=== PATIENT | male | born 1955 | race Caucasian/White ===

== ENCOUNTER 2021-08-31 15:56 | Outpatient (CLI) | payer BC ==
[2021-08-31 16:42] LABS: #Eosinphils 0.2 10x3/uL (0.0-0.5); #Monocytes 0.4 10x3/uL (0.0-1.1); #Neutrophils 4.5 10x3/uL (1.5-8.4); %Basophils 0.4 % (0.0-2.0); %Eosinophils 3.1 % (0.0-6.0); %Lymphocytes 27.5 % (18.0-47.0); %Neutrophils 62.4 % (40.0-75.0); Hemoglobin 16.5 g/dL (13.5-17.5); Mean Corpuscular HGB CONC 33.4 g/dL (32.0-36.0); Mean Corpuscular Hemoglobin 29.5 pg (27.0-33.0); Mean Corpuscular Volume 88.4 fl (81.2-95.1); Mean Platelet Volume 10.9 fl (7.4-10.4); Platelet Count 180 10x3/uL (150-450); RBC Distribution Width 13.5 % (11.5-14.5); Red Blood Cell (RBC) Count 5.59 10x6/uL (4.32-5.72); White Blood Cell (WBC) Count 7.2 10x3/uL (3.5-10.5)
[2021-08-31 17:01] LABS: Anion Gap 18 mmol/L (10-20); BUN (Urea Nitrogen) 9 mg/dL (8.4-25.7); Calc. Creatinine Clearance 0 mL/min (70-130); Calcium 9.6 mg/dL (7.8-10.44); Carbon Dioxide 22 mmol/L (23-31); Chloride 100 mmol/L (98-107); Glucose 126 mg/dL (80-115); Sodium 136 mmol/L (136-145)
== END 2021-08-31 15:57 | disposition home or self-care (01) ==
LOC: LABBT 15:56
PROVIDERS: ATTEND Surgery
DX: Z01.818 Encounter for other preprocedural examination (principal); K43.9 Ventral hernia without obstruction or gangrene; Z20.822 Contact with and (suspected) exposure to COVID-19
CPT/HCPCS: 80048; 85025; 93005; 93010; U0003; U0005

== ENCOUNTER 2021-09-05 11:28 | Day surgery (SDC) | payer BC ==
[2021-09-03 11:04] VITALS: BMI 29.6
[2021-09-05] MEDS ORDERED: hydrALAZINE 20 MG/ML VIAL ONE (13:30)
[2021-09-05] MEDS ORDERED: Bupivacaine 0.25% HCL 30 ML VIAL ONE (15:24)
[2021-09-05] MEDS ORDERED: Lidocaine 1% w/Epinephrine 1:100K 20 ML VIAL ONE (15:24)
[2021-09-05] MEDS ORDERED: SUGAMMADEX SODIUM 200 MG/2 ML VIAL ONE (15:27)
[2021-09-05] MEDS ORDERED: fentaNYL Citrate/PF 100 MCG/2 ML SYRINGE ONE (15:27)
[2021-09-05] MEDS ORDERED: HYDROmorphone 0.5 MG/0.5 ML SYRINGE ONE (15:27)
[2021-09-05] MEDS ORDERED: Sodium Chloride 0.9% 100 ML ONE (15:30)
[2021-09-05] MEDS ORDERED: CEFAZOLIN 2 GM VIAL ONE (15:30)
[2021-09-05] MEDS ORDERED: Rocuronium Bromide 10 MG/ML (10ML VIAL) ONE (15:35)
[2021-09-05] MEDS ORDERED: PROPOFOL 200 MG/20 ML VIAL ONE (15:35)
[2021-09-05] MEDS ORDERED: Ketorolac Tromethamine 30 MG/ML VIAL ONE (15:35)
[2021-09-05] MEDS ORDERED: Glycopyrrolate 0.2 MG/ML 5 ML SYRINGE ONE (15:35)
[2021-09-05] MEDS ORDERED: Lidocaine 1% PF 5 ML VIAL ONE (15:35)
[2021-09-05] MEDS ORDERED: Succinylcholine 200 MG/10 ml SYRINGE FS ONE (15:35)
[2021-09-05] MEDS ORDERED: Ondansetron PF 4 MG/2 ML Vial ONE (15:35)
[2021-09-05] MEDS ORDERED: Labetalol HCl 100 MG/20 ML VIAL ONE (15:35)
[2021-09-05] MEDS ORDERED: Dexamethasone 20 MG/5 ML VIAL ONE (15:35)
[2021-09-05] MEDS ORDERED: Fentanyl 100 MCG/2 ML VIAL ONE (17:01)
== END 2021-09-05 18:45 | disposition home or self-care (01) ==
LOC: SDC 11:28
PROVIDERS: ATTEND Surgery
PROC: 8E0W4CZ Robotic Assisted Procedure of Trunk Region, Percutaneous Endoscopic Approach (ICD-10-PCS; principal; 2021-09-05)
PROC: 0WUF4JZ Supplement Abdominal Wall with Synthetic Substitute, Percutaneous Endoscopic Approach (ICD-10-PCS; principal; 2021-09-05)
DX: K43.9 Ventral hernia without obstruction or gangrene (principal); E78.5 Hyperlipidemia, unspecified; E11.9 Type 2 diabetes mellitus without complications; F17.210 Nicotine dependence, cigarettes, uncomplicated; Z79.84 Long term (current) use of oral hypoglycemic drugs; Z79.899 Other long term (current) drug therapy; Z88.2 Allergy status to sulfonamides
CPT/HCPCS: C1781; J0360; J0690; J1100; J1170; J1885; J2405; J2704; J3010; J3490; S0020

== ENCOUNTER 2021-10-19 09:29 | Outpatient (CLI) | payer BC | END 2021-10-19 09:30 | disposition home or self-care (01) | LOC: BICRAD 09:29 | PROVIDERS: ATTEND Family Medicine | DX: R06.00 Dyspnea, unspecified (principal) | CPT/HCPCS: 71046 ==

== ENCOUNTER 2021-11-23 23:31 | Inpatient (IN) | payer OTHER, BC ==
[2021-11-24 01:49] LABS: PTT 26.8 sec (22.9-36.1); Prothrombin Time 13.1 sec (12.0-14.7)
[2021-11-24] MEDS ORDERED: methylPREDNISolone Sod Succ/PF 125 MG/2 ML VIAL ONE (01:49)
[2021-11-24 01:50] LABS: Hemoglobin 16.1 g/dL (14.0-18.0); Mean Corpuscular HGB CONC 33.6 g/dL (32.0-36.0); Mean Corpuscular Hemoglobin 29.5 pg (27.0-31.0); RBC Distribution Width 15.4 % (11.5-14.5); Red Blood Cell (RBC) Count 5.45 mill/uL (4.70-6.10); White Blood Cell (WBC) Count 17.2 thou/uL (4.8-10.8)
[2021-11-24 01:54] LABS: Lactic Acid 1.7 mmol/L (0.5-2.2)
[2021-11-24 01:58] LABS: ALT (SGPT) 358 U/L (8-55); AST (SGOT) 216 U/L (5-34); Albumin 3.1 g/dL (3.4-4.8); Alkaline Phosphatase 481 U/L (40-110); Anion Gap 15 mmol/L (10-20); BUN (Urea Nitrogen) 17 mg/dL (8.4-25.7); Bilirubin, Direct 9.9 mg/dL (0.1-0.3); Bilirubin, Total 13.6 mg/dL (0.2-1.2); Calc. Creatinine Clearance 0 mL/min (70-130); Calcium 8.8 mg/dL (7.8-10.44); Carbon Dioxide 29 mmol/L (23-31); Chloride 92 mmol/L (98-107); Estimated GFR 100; Glucose 173 mg/dL (80-115); Lipase 42 U/L (8-78); Magnesium 2.1 mg/dL (1.6-2.6); Potassium 3.4 mmol/L (3.5-5.1); Protein, Total 6.1 g/dL (5.8-8.1); Sodium 133 mmol/L (136-145)
[2021-11-24 02:03] LABS: CKMB 4.3 ng/mL (0-6.6); Troponin I 0.013 ng/mL (< 0.028)
[2021-11-24 02:11] LABS: Lymphocytes 7 % (21-51); MDiff Complete? YES; Mean Platelet Volume 10.7 fL (7.4-10.4); Monocytes 1 % (0-10); Neutrophil 92 % (42-75); Platelet Count 104 thou/uL (130-400); Platelet Morphology Comment Appears Decreased; Reflex for Review?? YES; Target Cells MARKED = >16 cells (100X) (0-1/hpf)
[2021-11-24] MEDS ORDERED: Vancomycin 1 GM/200 ML BAG ONE (03:58)
[2021-11-24 05:42] LABS: Bacteria/HPF None Seen HPF (None Seen); Bilirubin 2+ (Negative); Blood, Urine Negative (Negative); Clarity Clear (Clear); Glucose, Urine (Dipstick) 70 mg/dL (Negative); Ketone, Urine Negative (Negative); Leukocyte Negative Leu/uL (Negative); Nitrite Negative (Negative); Protein, Urine (Dipstick) Negative (Neg-Trace); RBC/HPF 0-3 HPF (0-3); Squamous Epithelial None Seen HPF (0-3); Urobilinogen Normal mg/dL (Less than 2); WBC/HPF 0-3 HPF (0-3); pH, Urine 7.5 (5.0-9.0)
[2021-11-24] MEDS ORDERED: Ondansetron PF 4 MG/2 ML Vial IVP PRN (05:45)
[2021-11-24] MEDS ORDERED: Ondansetron ODT 4 MG TAB SL PRN (05:45)
[2021-11-24] MEDS ORDERED: Acetaminophen 325 MG TAB PO PRN (05:45)
[2021-11-24] MEDS ORDERED: metroNIDAZOLE 500 MG/100 ML BAG ONE (06:31)
[2021-11-24] MEDS ORDERED: Senokot S 8.6-50 MG TAB PO PRN (08:35)
[2021-11-24] MEDS ORDERED: Albuterol Sulfate 2.5 mg/3 ml Neb NEB PRN (08:47)
[2021-11-24 09:49] LABS: SARS-CoV-2 NAA Rapid Test Not Detected (NotDetected)
[2021-11-24] MEDS ORDERED: Dextrose 50% Abboject 50 ML SYRINGE SLOW IVP PRN (09:50)
[2021-11-24] MEDS ORDERED: Dextrose 5% in Water 1,000 ML IV PRN (09:50)
[2021-11-24] MEDS: Pantoprazole 40 MG VIAL IVP SCH ×2 (09:58→21:02)
[2021-11-24] MEDS ORDERED: guaiFENesin 200 MG TAB PO PRN (10:09)
[2021-11-24] MEDS: Sodium Chloride 0.9% 1,000 ML IV SCH ×4 (11:11→21:02)
[2021-11-24] MEDS: Potassium Chloride 20 MEQ in Premix Bag 1 BAG IVPB SCH ×3 (12:47→15:00)
[2021-11-24] MEDS: Nicotine 14 MG PATCH TD SCH (13:01)
[2021-11-24] MEDS ORDERED: metroNIDAZOLE 500 MG in Premix Bag 1 BAG IVPB SCH (14:00)
[2021-11-24] MEDS ORDERED: Iopamidol 370 76% 100 ML VIAL ONE (15:21)
[2021-11-24] MEDS ORDERED: Magnevist 469MG/ML 20 ML VIAL ONE (15:38)
[2021-11-25] MEDS: Sodium Chloride 0.9% 1,000 ML IV SCH (01:25)
[2021-11-25] MEDS: metroNIDAZOLE 500 MG in Premix Bag 1 BAG IVPB SCH ×2 (01:25→12:09)
[2021-11-25 07:20] LABS: ALT (SGPT) 279 U/L (8-55); AST (SGOT) 145 U/L (5-34); Acetaminophen Less than 10.0 mcg/mL (10.0-30.0); Albumin 2.7 g/dL (3.4-4.8); Alkaline Phosphatase 430 U/L (40-110); Anion Gap 14 mmol/L (10-20); BUN (Urea Nitrogen) 20 mg/dL (8.4-25.7); Bilirubin, Total 15.1 mg/dL (0.2-1.2); Calc. Creatinine Clearance 134 mL/min (70-130); Calcium 8.4 mg/dL (7.8-10.44); Carbon Dioxide 29 mmol/L (23-31); Chloride 95 mmol/L (98-107); Estimated GFR 104; Globulin 2.6 g/dL (2.4-3.5); Glucose 139 mg/dL (80-115); Iron 202 ug/dL (65-175); Iron Binding Capacity, Total 196 mcg/dL (261-462); Potassium 3.1 mmol/L (3.5-5.1); Protein, Total 5.3 g/dL (5.8-8.1); Sodium 135 mmol/L (136-145)
[2021-11-25 07:35] LABS: CEA, Serum 9.87 ng/mL (< or = 5.0); Ferritin 941.73 ng/mL (22-322)
[2021-11-25 07:43] LABS: #Lymphocytes 1.6 thou/uL (1.20-3.40); #Neutrophils 15.2 thou/uL (1.40-6.50); %Eosinophils 0.2 % (0.0-10.0); %Lymphocytes 8.9 % (21.0-51.0); %Monocytes 5.7 % (0.0-10.0); %Neutrophils 85.2 % (42.0-75.0); Hemoglobin 16.8 g/dL (14.0-18.0); Mean Corpuscular HGB CONC 34.1 g/dL (32.0-36.0); Mean Corpuscular Hemoglobin 30.4 pg (27.0-31.0); Mean Corpuscular Volume 89.2 fL (78.0-98.0); Mean Platelet Volume 10.7 fL (7.4-10.4); Platelet Count 110 thou/uL (130-400); RBC Distribution Width 15.9 % (11.5-14.5); Red Blood Cell (RBC) Count 5.51 mill/uL (4.70-6.10); White Blood Cell (WBC) Count 17.9 thou/uL (4.8-10.8)
[2021-11-25 07:44] LABS: Band 14 % (5-11); Lymphocytes 3 % (21-51); MDiff Complete? YES; Metamyelocyte 1 % (0-0); Monocytes 3 % (0-10); Myelocyte 1 % (0-0); Neutrophil 75 % (42-75); Platelet Morphology Comment Appears Decreased; Reactive Lymphocytes 3 % (0-10); Target Cells MARKED = >16 cells (100X) (0-1/hpf)
[2021-11-25 07:49] LABS: HBCM Index 0.04 S/CO (0-0.79); HBSAg Index 0.21 S/CO (0-0.99); Hep A IgM AB Non-Reactive (NonReactive); Hep B Surf Ag Non-Reactive S/CO (NonReactive); Hep C IgG Ab Non-Reactive (NonReactive); Hepatitis B Core IgM Abs Non-Reactive (NonReactive)
[2021-11-25] MEDS ORDERED: cefTRIAXone\\ROCEPHIN 1 GM in Sodium Chloride 0.9% 100 ML IVPB SCH (08:00)
[2021-11-25] MEDS ORDERED: Dexamethasone 10 MG in Sodium Chloride 0.9% 50 ML IVPB SCH (08:00)
[2021-11-25 08:17] LABS: Actual Bicarbonate (HCO3a) 30.9 mEq/L (22-28); Base Excess (BEa) 7.2 mEq/L (-2.0 to +3.0); CO2 Tension 40.2 mmHg (35.0-45.0); Calcium, Ionized (arterial) 1.12 mmol/L (1.12-1.30); Potassium - ABG Lab 3.19 mmol/L (3.70-5.30)
[2021-11-25 08:18] LABS: O2 Tension (PaO2), arterial 59.8 mmHg (> 80.0); Puncture Site RRA
[2021-11-25 08:45] LABS: Magnesium 2.1 mg/dL (1.6-2.6); Phosphorus 3.9 mg/dL (2.3-4.7)
[2021-11-25] MEDS ORDERED: Electrolyte Replacement Protocol 1 EACH FS SCH (08:45)
[2021-11-25] MEDS ORDERED: Doxycycline 100 MG in Sodium Chloride 0.9% 100 ML IVPB SCH (09:00)
[2021-11-25 09:05] LABS: HIV (1/2) Antibody/Antigen Non-Reactive (NonReactive); HIV 1/2 INDEX 0.19 S/CO (<1.00)
[2021-11-25] MEDS: Potassium Chloride 20 MEQ TAB PO SCH ×2 (09:18→14:07)
[2021-11-25] MEDS: Pantoprazole 40 MG VIAL IVP SCH ×2 (09:18→20:09)
[2021-11-25] MEDS: Dexamethasone 10 MG/ML VIAL SLOW IVP SCH (09:18)
[2021-11-25] MEDS: Fenofibrate Nanocrystallized 145 MG TAB PO SCH (09:18)
[2021-11-25] MEDS: Nicotine 14 MG PATCH TD SCH (09:20)
[2021-11-25] MEDS: cefTRIAXone\\ROCEPHIN 2 GM in Sodium Chloride 0.9% 100 ML IVPB SCH (14:07)
[2021-11-25 14:59] LABS: Legionella Urinary Ag Negative (Negative); Strep pneumo Urine Ag NEGATIVE (NEGATIVE)
[2021-11-25] MEDS: HumaLOG 300 UNITS/3 ML VIAL SC PRN ×2 (18:24→22:30)
[2021-11-25 19:21] LABS: Potassium 3.6 mmol/L (3.5-5.1)
[2021-11-25] MEDS ORDERED: Melatonin 3 MG TAB PO SCH (20:45)
[2021-11-26 07:29] LABS: Hemoglobin 15.4 g/dL (14.0-18.0); Mean Corpuscular HGB CONC 32.6 g/dL (32.0-36.0); Mean Corpuscular Volume 89.1 fL (78.0-98.0); Mean Platelet Volume 10.8 fL (7.4-10.4); Platelet Count 108 thou/uL (130-400); RBC Distribution Width 16.1 % (11.5-14.5); White Blood Cell (WBC) Count 19.2 thou/uL (4.8-10.8)
[2021-11-26 07:39] LABS: ALT (SGPT) 289 U/L (8-55); AST (SGOT) 186 U/L (5-34); Albumin 2.7 g/dL (3.4-4.8); Alkaline Phosphatase 412 U/L (40-110); Anion Gap 15 mmol/L (10-20); BUN (Urea Nitrogen) 19 mg/dL (8.4-25.7); Bilirubin, Total 15.1 mg/dL (0.2-1.2); Calc. Creatinine Clearance 130 mL/min (70-130); Calcium 8.4 mg/dL (7.8-10.44); Carbon Dioxide 28 mmol/L (23-31); Chloride 96 mmol/L (98-107); Estimated GFR 103; Globulin 2.7 g/dL (2.4-3.5); Glucose 130 mg/dL (80-115); Magnesium 2.2 mg/dL (1.6-2.6); Potassium 3.6 mmol/L (3.5-5.1); Protein, Total 5.4 g/dL (5.8-8.1); Sodium 135 mmol/L (136-145)
[2021-11-26 07:45] LABS: Phosphorus 3.1 mg/dL (2.3-4.7)
[2021-11-26 08:31] LABS: #Monocytes 1.3 thou/uL (0.11-0.59); %Eosinophils 0.2 % (0.0-10.0); %Lymphocytes 7.9 % (21.0-51.0); %Monocytes 6.8 % (0.0-10.0); Band 5 % (5-11); Lymphocytes 8 % (21-51); MDiff Complete? YES; Monocytes 6 % (0-10); Neutrophil 80 % (42-75); Platelet Morphology Comment Appears Decreased; Polychromasia SLIGHT = 2-3 cells (100X) (0-2/hpf); Reactive Lymphocytes 1 % (0-10); Target Cells MARKED = >16 cells (100X) (0-1/hpf)
[2021-11-26] MEDS: Dexamethasone 10 MG/ML VIAL SLOW IVP SCH (09:41)
[2021-11-26] MEDS: Fenofibrate Nanocrystallized 145 MG TAB PO SCH (09:41)
[2021-11-26] MEDS: Pantoprazole 40 MG VIAL IVP SCH ×2 (09:42→21:30)
[2021-11-26] MEDS: Nicotine 14 MG PATCH TD SCH (09:42)
[2021-11-26] MEDS: cefTRIAXone\\ROCEPHIN 2 GM in Sodium Chloride 0.9% 100 ML IVPB SCH (14:02)
[2021-11-26] MEDS ORDERED: GoLYTELY 4,000 ml Bottle PO SCH (17:00)
[2021-11-27 06:30] LABS: ALT (SGPT) 272 U/L (8-55); AST (SGOT) 149 U/L (5-34); Albumin 2.8 g/dL (3.4-4.8); Alkaline Phosphatase 407 U/L (40-110); Anion Gap 13 mmol/L (10-20); BUN (Urea Nitrogen) 20 mg/dL (8.4-25.7); Bilirubin, Total 16.7 mg/dL (0.2-1.2); Calc. Creatinine Clearance 136 mL/min (70-130); Calcium 8.5 mg/dL (7.8-10.44); Carbon Dioxide 31 mmol/L (23-31); Chloride 94 mmol/L (98-107); Estimated GFR 104; Globulin 2.7 g/dL (2.4-3.5); Glucose 148 mg/dL (80-115); Potassium 3.3 mmol/L (3.5-5.1); Protein, Total 5.5 g/dL (5.8-8.1); Sodium 135 mmol/L (136-145)
[2021-11-27 06:58] LABS: Band 7 % (5-11); Hemoglobin 15.8 g/dL (14.0-18.0); Lymphocytes 7 % (21-51); MDiff Complete? YES; Mean Corpuscular HGB CONC 33.7 g/dL (32.0-36.0); Mean Corpuscular Volume 89.1 fL (78.0-98.0); Mean Platelet Volume 10.2 fL (7.4-10.4); Monocytes 3 % (0-10); Neutrophil 83 % (42-75); Platelet Count 114 thou/uL (130-400); RBC Distribution Width 16.3 % (11.5-14.5); Red Blood Cell (RBC) Count 5.27 mill/uL (4.70-6.10); Target Cells MODERATE= 6-15 cells (100X) (0-1/hpf); White Blood Cell (WBC) Count 20.1 thou/uL (4.8-10.8)
[2021-11-27] MEDS: Fenofibrate Nanocrystallized 145 MG TAB PO SCH (09:18)
[2021-11-27] MEDS: Pantoprazole 40 MG VIAL IVP SCH ×2 (09:18→20:30)
[2021-11-27] MEDS: Dexamethasone 10 MG/ML VIAL SLOW IVP SCH (09:18)
[2021-11-27] MEDS: Nicotine 14 MG PATCH TD SCH (09:18)
[2021-11-27] MEDS: Potassium Chloride 20 MEQ in Premix Bag 1 BAG IVPB SCH ×2 (09:18→14:12)
[2021-11-27] MEDS ORDERED: Electrolyte Replacement Protocol 1 EACH FS SCH (09:45)
[2021-11-27] MEDS ORDERED: PROPOFOL 200 MG/20 ML VIAL ONE (11:38)
[2021-11-27] MEDS ORDERED: Lidocaine 1% MPF 2 ML VIAL ONE (11:38)
[2021-11-27] MEDS: cefTRIAXone\\ROCEPHIN 2 GM in Sodium Chloride 0.9% 100 ML IVPB SCH (14:12)
[2021-11-27] MEDS: HumaLOG 300 UNITS/3 ML VIAL SC PRN (16:49)
[2021-11-28] MEDS: HumaLOG 300 UNITS/3 ML VIAL SC PRN ×3 (06:21→17:40)
[2021-11-28 07:09] LABS: PTT 26.7 sec (22.9-36.1); Prothrombin Time 13.7 sec (12.0-14.7)
[2021-11-28 07:39] LABS: ALT (SGPT) 290 U/L (8-55); AST (SGOT) 200 U/L (5-34); Albumin 2.7 g/dL (3.4-4.8); Alkaline Phosphatase 384 U/L (40-110); Anion Gap 18 mmol/L (10-20); BUN (Urea Nitrogen) 20 mg/dL (8.4-25.7); Calc. Creatinine Clearance 123 mL/min (70-130); Calcium 8.6 mg/dL (7.8-10.44); Carbon Dioxide 30 mmol/L (23-31); Chloride 95 mmol/L (98-107); Estimated GFR 101; Globulin 2.7 g/dL (2.4-3.5); Glucose 170 mg/dL (80-115); Potassium 3.5 mmol/L (3.5-5.1); Protein, Total 5.4 g/dL (5.8-8.1); Sodium 139 mmol/L (136-145)
[2021-11-28] MEDS: Dexamethasone 10 MG/ML VIAL SLOW IVP SCH (08:07)
[2021-11-28] MEDS: Pantoprazole 40 MG VIAL IVP SCH ×2 (08:07→21:21)
[2021-11-28] MEDS: Fenofibrate Nanocrystallized 145 MG TAB PO SCH (08:07)
[2021-11-28] MEDS: Nicotine 14 MG PATCH TD SCH (08:07)
[2021-11-28] MEDS: cefTRIAXone\\ROCEPHIN 2 GM in Sodium Chloride 0.9% 100 ML IVPB SCH (13:27)
[2021-11-28 17:37] LABS: Smooth Muscle Total ABS 12 Units (0-19)
[2021-11-29] MEDS: HumaLOG 300 UNITS/3 ML VIAL SC PRN ×3 (06:14→17:23)
[2021-11-29 06:55] LABS: Prothrombin Time 13.5 sec (12.0-14.7)
[2021-11-29 06:56] LABS: PTT 27.1 sec (22.9-36.1)
[2021-11-29 07:20] LABS: ALT (SGPT) 331 U/L (8-55); AST (SGOT) 235 U/L (5-34); Albumin 2.7 g/dL (3.4-4.8); Alkaline Phosphatase 427 U/L (40-110); Anion Gap 18 mmol/L (10-20); BUN (Urea Nitrogen) 17 mg/dL (8.4-25.7); Bilirubin, Total 17.4 mg/dL (0.2-1.2); Calc. Creatinine Clearance 152 mL/min (70-130); Calcium 8.6 mg/dL (7.8-10.44); Carbon Dioxide 28 mmol/L (23-31); Chloride 93 mmol/L (98-107); Estimated GFR 108; Globulin 2.9 g/dL (2.4-3.5); Glucose 194 mg/dL (80-115); Potassium 3.8 mmol/L (3.5-5.1); Protein, Total 5.6 g/dL (5.8-8.1); Sodium 135 mmol/L (136-145)
[2021-11-29] MEDS: Nicotine 14 MG PATCH TD SCH (08:19)
[2021-11-29] MEDS: Fenofibrate Nanocrystallized 145 MG TAB PO SCH (08:19)
[2021-11-29] MEDS: Pantoprazole 40 MG VIAL IVP SCH ×2 (08:19→21:35)
[2021-11-29] MEDS: Dexamethasone 10 MG/ML VIAL SLOW IVP SCH (08:26)
[2021-11-29] MEDS ORDERED: metFORMIN 500 MG TAB PO SCH (09:00)
[2021-11-29] MEDS: cefTRIAXone\\ROCEPHIN 2 GM in Sodium Chloride 0.9% 100 ML IVPB SCH (12:34)
[2021-11-29 13:53] LABS: CEA, Serum 11.64 ng/mL (< or = 5.0)
[2021-11-29 13:54] LABS: PSA-Asymptomatic (SCREENING) 0.58 ng/mL (0-4.0)
[2021-11-29] MEDS: metFORMIN 500 MG TAB PO SCH (21:35)
[2021-11-29] MEDS: Zolpidem Tartrate 5 MG TAB PO PRN (21:35)
[2021-11-30] MEDS: HumaLOG 300 UNITS/3 ML VIAL SC PRN ×4 (05:43→21:19)
[2021-11-30 07:09] LABS: Reticulocyte Count 1.9 % (0.5-1.5)
[2021-11-30 07:23] LABS: Prothrombin Time 13.7 sec (12.0-14.7)
[2021-11-30 07:24] LABS: PTT 28.1 sec (22.9-36.1)
[2021-11-30 07:28] LABS: ALT (SGPT) 324 U/L (8-55); AST (SGOT) 193 U/L (5-34); Albumin 2.7 g/dL (3.4-4.8); Alkaline Phosphatase 405 U/L (40-110); Anion Gap 15 mmol/L (10-20); BUN (Urea Nitrogen) 21 mg/dL (8.4-25.7); Bilirubin, Total 19.2 mg/dL (0.2-1.2); Calc. Creatinine Clearance 121 mL/min (70-130); Calcium 8.9 mg/dL (7.8-10.44); Carbon Dioxide 32 mmol/L (23-31); Chloride 92 mmol/L (98-107); Estimated GFR 101; Globulin 2.6 g/dL (2.4-3.5); Glucose 139 mg/dL (80-115); Potassium 3.3 mmol/L (3.5-5.1); Protein, Total 5.3 g/dL (5.8-8.1); Sodium 136 mmol/L (136-145)
[2021-11-30] MEDS ORDERED: Potassium Chloride 20 MEQ TAB PO SCH (08:30)
[2021-11-30] MEDS: metFORMIN 500 MG TAB PO SCH (08:39)
[2021-11-30] MEDS: Pantoprazole 40 MG VIAL IVP SCH ×2 (08:39→21:18)
[2021-11-30] MEDS: Nicotine 14 MG PATCH TD SCH (08:39)
[2021-11-30] MEDS: Dexamethasone 10 MG/ML VIAL SLOW IVP SCH (08:39)
[2021-11-30] MEDS: Fenofibrate Nanocrystallized 145 MG TAB PO SCH (08:39)
[2021-11-30 09:03] LABS: Band 6 % (5-11); Lymphocytes 9 % (21-51); MDiff Complete? YES; Neutrophil 81 % (42-75); Platelet Morphology Comment Appears Decreased; Polychromasia SLIGHT = 2-3 cells (100X) (0-2/hpf); Reactive Lymphocytes 4 % (0-10); Target Cells MARKED = >16 cells (100X) (0-1/hpf)
[2021-11-30 09:04] LABS: Hemoglobin 15.5 g/dL (14.0-18.0); Mean Corpuscular HGB CONC 32.3 g/dL (32.0-36.0); Mean Corpuscular Hemoglobin 28.8 pg (27.0-31.0); Mean Corpuscular Volume 89.3 fL (78.0-98.0); Mean Platelet Volume 11.6 fL (7.4-10.4); Platelet Count 102 thou/uL (130-400); RBC Distribution Width 16.8 % (11.5-14.5); Red Blood Cell (RBC) Count 5.36 mill/uL (4.70-6.10); White Blood Cell (WBC) Count 24.5 thou/uL (4.8-10.8)
[2021-11-30] MEDS ORDERED: Magnevist 469MG/ML 20 ML VIAL ONE (15:33)
[2021-11-30] MEDS: Zolpidem Tartrate 5 MG TAB PO PRN (21:18)
[2021-12-01 05:44] LABS: INR-International Normal Ratio 1.1; PTT 28.7 sec (22.9-36.1); Prothrombin Time 14.4 sec (12.0-14.7)
[2021-12-01] MEDS ORDERED: SODIUM CHLORIDE 0.9% IVPB SCH (06:00)
[2021-12-01] MEDS ORDERED: CARBOPLATIN IVPB SCH (06:00)
[2021-12-01] MEDS ORDERED: Pegfilgrastim Onpro 6 MG/0.6 ML SQ SCH (06:00)
[2021-12-01] MEDS ORDERED: PALONOSETRON HCL 0.05 MG/ML 5 ML VIAL IVP SCH (06:00)
[2021-12-01] MEDS ORDERED: Etoposide 200 MG in Sodium Chloride 0.9% 500 ML IVPB SCH (06:00)
[2021-12-01] MEDS: HumaLOG 300 UNITS/3 ML VIAL SC PRN ×4 (06:34→20:24)
[2021-12-01 08:10] LABS: Albumin 2.7 g/dL (3.4-4.8)
[2021-12-01 08:11] LABS: Chloride 91 mmol/L (98-107); Potassium 4.5 mmol/L (3.5-5.1); Sodium 134 mmol/L (136-145)
[2021-12-01 08:12] LABS: Calcium 8.9 mg/dL (7.8-10.44); Glucose 150 mg/dL (80-115)
[2021-12-01] MEDS: Dexamethasone 10 MG/ML VIAL SLOW IVP SCH (08:12)
[2021-12-01] MEDS: Fenofibrate Nanocrystallized 145 MG TAB PO SCH (08:12)
[2021-12-01] MEDS: Pantoprazole 40 MG VIAL IVP SCH ×2 (08:12→20:24)
[2021-12-01] MEDS: Nicotine 14 MG PATCH TD SCH (08:12)
[2021-12-01 08:13] LABS: Protein, Total 5.7 g/dL (5.8-8.1)
[2021-12-01 08:14] LABS: Anion Gap 18 mmol/L (10-20); Bilirubin, Total 21.2 mg/dL (0.2-1.2); Carbon Dioxide 30 mmol/L (23-31)
[2021-12-01 08:15] LABS: Alkaline Phosphatase 421 U/L (40-110)
[2021-12-01 08:16] LABS: Calc. Creatinine Clearance 140 mL/min (70-130); Estimated GFR 105
[2021-12-01 08:17] LABS: BUN (Urea Nitrogen) 29 mg/dL (8.4-25.7)
[2021-12-01 08:18] LABS: ALT (SGPT) 313 U/L (8-55); AST (SGOT) 191 U/L (5-34)
[2021-12-01] MEDS: Zolpidem Tartrate 5 MG TAB PO PRN (20:22)
[2021-12-01] MEDS: Insulin Glargine 30 UNITS/0.3 ML VIAL SC SCH (20:23)
[2021-12-02] MEDS: Dexamethasone 10 MG/ML VIAL SLOW IVP SCH (08:41)
[2021-12-02] MEDS: Pantoprazole 40 MG VIAL IVP SCH ×2 (08:41→20:27)
[2021-12-02] MEDS: Fenofibrate Nanocrystallized 145 MG TAB PO SCH (08:41)
[2021-12-02] MEDS: Nicotine 14 MG PATCH TD SCH (09:05)
[2021-12-02] MEDS ORDERED: Sodium Chloride 0.9% 1,000 ML IV SCH ×2 (12:45→15:15)
[2021-12-02 13:00] LABS: Hemoglobin 13.9 g/dL (14.0-18.0); Mean Corpuscular HGB CONC 32.7 g/dL (32.0-36.0); Mean Corpuscular Volume 88.7 fL (78.0-98.0); Mean Platelet Volume 11.6 fL (7.4-10.4); Platelet Count 118 thou/uL (130-400); RBC Distribution Width 17.5 % (11.5-14.5); Red Blood Cell (RBC) Count 4.79 mill/uL (4.70-6.10)
[2021-12-02 13:05] LABS: INR-International Normal Ratio 1.1; PTT 28.8 sec (22.9-36.1); Prothrombin Time 14.7 sec (12.0-14.7)
[2021-12-02 13:15] LABS: Anisocytosis SLIGHT = 6-15 cells (100X) (0-5/hpf); Band 3 % (5-11); Lymphocytes 6 % (21-51); MDiff Complete? YES; Monocytes 1 % (0-10); Neutrophil 89 % (42-75); Platelet Morphology Comment Appears Decreased; Reactive Lymphocytes 1 % (0-10); Target Cells MODERATE= 6-15 cells (100X) (0-1/hpf); White Blood Cell (WBC) Count 26.3 thou/uL (4.8-10.8)
[2021-12-02 13:17] LABS: Anion Gap 19 mmol/L (10-20); BUN (Urea Nitrogen) 31 mg/dL (8.4-25.7); Calc. Creatinine Clearance 90 mL/min (70-130); Calcium 8.5 mg/dL (7.8-10.44); Carbon Dioxide 27 mmol/L (23-31); Chloride 93 mmol/L (98-107); Estimated GFR 83; Glucose 184 mg/dL (80-115); Potassium 4.1 mmol/L (3.5-5.1); Sodium 135 mmol/L (136-145)
[2021-12-02 15:35] LABS: ANA Symphony (Qualitative) Equivocal: See Note (Negative); CENP IgG Antibody Less than 0.4 EliAU/mL (<7 Negative); EliA Vaculitis New Method **** NEW METHOD ****; Jo-1 IgG Antibody Less than 0.3 EliAU/mL (<7 Negative); Mitochondrial Ab 1.7 U/mL (<4 Negative); RNP70 IgG Antibody 0.7 EliAU/mL (<7 Negative); SSA/Ro IgG Antibody 0.5 EliAU/mL (<7 Negative); SSB/La IgG Antibody 0.3 EliAU/mL (<7 Negative); Scleroderma-70 IgG Antibody Less than 0.6 EliAU/mL (<7 Negative); Smith D IgG Antibody 8.5 EliAU/mL (<7 Negative); dsDNA IgG Antibody 1.3 IU/mL (<10 Negative)
[2021-12-02] MEDS: Sodium Chloride 0.9% 1,000 ML IV SCH ×2 (17:15→23:52)
[2021-12-02] MEDS ORDERED: Octreotide Acetate 1,250 MCG in Sodium Chloride 0.9% 250 ML 250 ML IVPB SCH (17:15)
[2021-12-02] MEDS ORDERED: Octreotide Acetate 100 MCG/ML VIAL SLOW IVP SCH (17:15)
[2021-12-02] MEDS ORDERED: Octreotide Acetate 500 MCG/ML VIAL SLOW IVP SCH (17:30)
[2021-12-02] MEDS ORDERED: Phenylephrine 10 MG/ML VIAL ONE (17:58)
[2021-12-02] MEDS ORDERED: Ketamine 50 MG/ML (10ML VIAL) ONE (17:58)
[2021-12-02 18:02] LABS: Hemoglobin 10.3 g/dL (14.0-18.0)
[2021-12-02] MEDS ORDERED: PROPOFOL 200 MG/20 ML VIAL ONE (18:06)
[2021-12-02 18:28] LABS: Anisocytosis SLIGHT = 6-15 cells (100X) (0-5/hpf); Band 3 % (5-11); Lymphocytes 1 % (21-51); MDiff Complete? YES; Mean Corpuscular HGB CONC 33.5 g/dL (32.0-36.0); Mean Corpuscular Hemoglobin 29.7 pg (27.0-31.0); Mean Corpuscular Volume 88.5 fL (78.0-98.0); Mean Platelet Volume 9.4 fL (7.4-10.4); Monocytes 7 % (0-10); Neutrophil 88 % (42-75); Nucleated RBC 1 % (0); Pappenheimer Bodies SLIGHT = 1-2 cells (100X) (None Seen); Platelet Count 79 thou/uL (130-400); Platelet Morphology Comment Appears Decreased; Polychromasia MODERATE = 3-4 cells (100X) (0-2/hpf); RBC Distribution Width 17.4 % (11.5-14.5); Reactive Lymphocytes 1 % (0-10); Red Blood Cell (RBC) Count 3.46 mill/uL (4.70-6.10); Target Cells SLIGHT = 2-5 cells (100X) (0-1/hpf); White Blood Cell (WBC) Count 21.8 thou/uL (4.8-10.8)
[2021-12-02] MEDS: Insulin Glargine 30 UNITS/0.3 ML VIAL SC SCH (20:26)
[2021-12-02 21:33] LABS: Band 7 % (5-11); Hemoglobin 13.4 g/dL (14.0-18.0); Lymphocytes 3 % (21-51); MDiff Complete? YES; Mean Corpuscular HGB CONC 33.8 g/dL (32.0-36.0); Mean Corpuscular Hemoglobin 30.1 pg (27.0-31.0); Mean Platelet Volume 10.1 fL (7.4-10.4); Monocytes 11 % (0-10); Neutrophil 79 % (42-75); Platelet Count 147 thou/uL (130-400); Platelet Morphology Comment Appears Adequate; RBC Distribution Width 16.7 % (11.5-14.5); RBC Morphology Normal; Red Blood Cell (RBC) Count 4.44 mill/uL (4.70-6.10); White Blood Cell (WBC) Count 24.9 thou/uL (4.8-10.8)
[2021-12-03 02:57] LABS: Band 15 % (5-11); Hemoglobin 12.9 g/dL (14.0-18.0); Hypochromia SLIGHT = 6-15 cells (100X) (0-5/hpf); Lymphocytes 14 % (21-51); MDiff Complete? YES; Mean Corpuscular HGB CONC 35.2 g/dL (32.0-36.0); Mean Corpuscular Hemoglobin 31.3 pg (27.0-31.0); Mean Corpuscular Volume 89.1 fL (78.0-98.0); Mean Platelet Volume 10.1 fL (7.4-10.4); Monocytes 1 % (0-10); Neutrophil 68 % (42-75); Platelet Count 132 thou/uL (130-400); Platelet Morphology Comment Appears Adequate; RBC Distribution Width 16.6 % (11.5-14.5); Reactive Lymphocytes 2 % (0-10); Red Blood Cell (RBC) Count 4.11 mill/uL (4.70-6.10); White Blood Cell (WBC) Count 23.7 thou/uL (4.8-10.8)
[2021-12-03 03:10] LABS: Anion Gap 19 mmol/L (10-20); BUN (Urea Nitrogen) 33 mg/dL (8.4-25.7); Calc. Creatinine Clearance 134 mL/min (70-130); Calcium 7.9 mg/dL (7.8-10.44); Carbon Dioxide 23 mmol/L (23-31); Chloride 100 mmol/L (98-107); Estimated GFR 104; Glucose 142 mg/dL (80-115); Potassium 4.2 mmol/L (3.5-5.1); Sodium 138 mmol/L (136-145)
[2021-12-03] MEDS: Pantoprazole 40 MG VIAL IVP SCH ×2 (08:21→20:20)
[2021-12-03] MEDS: Albumin 25% 25 GM/100 ML BOT IVPB SCH ×3 (08:21→20:20)
[2021-12-03] MEDS: Nicotine 14 MG PATCH TD SCH ×2 (08:21→08:26)
[2021-12-03] MEDS: Sodium Chloride 0.9% 1,000 ML IV SCH ×2 (08:21→17:47)
[2021-12-03] MEDS: Fenofibrate Nanocrystallized 145 MG TAB PO SCH (08:21)
[2021-12-03] MEDS: Insulin Glargine 30 UNITS/0.3 ML VIAL SC SCH (20:20)
[2021-12-04] MEDS: Albumin 25% 25 GM/100 ML BOT IVPB SCH (02:46)
[2021-12-04] MEDS: Sodium Chloride 0.9% 1,000 ML IV SCH ×2 (02:46→08:25)
[2021-12-04 04:21] LABS: ALT (SGPT) 198 U/L (8-55); AST (SGOT) 149 U/L (5-34); Albumin 3.3 g/dL (3.4-4.8); Alkaline Phosphatase 206 U/L (40-110); Anion Gap 14 mmol/L (10-20); BUN (Urea Nitrogen) 25 mg/dL (8.4-25.7); Calc. Creatinine Clearance 131 mL/min (70-130); Calcium 8.6 mg/dL (7.8-10.44); Carbon Dioxide 28 mmol/L (23-31); Chloride 100 mmol/L (98-107); Estimated GFR 102; Globulin 1.5 g/dL (2.4-3.5); Glucose 163 mg/dL (80-115); Potassium 3.4 mmol/L (3.5-5.1); Protein, Total 4.8 g/dL (5.8-8.1); Sodium 139 mmol/L (136-145)
[2021-12-04 04:50] LABS: #Eosinphils 0.1 thou/uL (0.0-0.7); #Lymphocytes 1.7 thou/uL (1.20-3.40); #Monocytes 1.2 thou/uL (0.11-0.59); #Neutrophils 15.2 thou/uL (1.40-6.50); %Eosinophils 0.3 % (0.0-10.0); %Lymphocytes 9.2 % (21.0-51.0); %Monocytes 6.5 % (0.0-10.0); Anisocytosis SLIGHT = 6-15 cells (100X) (0-5/hpf); Band 2 % (5-11); Hemoglobin 10.1 g/dL (14.0-18.0); Lymphocytes 8 % (21-51); MDiff Complete? YES; Mean Corpuscular HGB CONC 34.8 g/dL (32.0-36.0); Mean Corpuscular Hemoglobin 30.7 pg (27.0-31.0); Mean Corpuscular Volume 88.2 fL (78.0-98.0); Mean Platelet Volume 10.4 fL (7.4-10.4); Monocytes 9 % (0-10); Neutrophil 81 % (42-75); Nucleated RBC 1 % (0); Platelet Count 102 thou/uL (130-400); Platelet Morphology Comment Appears Decreased; RBC Distribution Width 16.6 % (11.5-14.5); Red Blood Cell (RBC) Count 3.29 mill/uL (4.70-6.10); Target Cells MODERATE= 6-15 cells (100X) (0-1/hpf); White Blood Cell (WBC) Count 18.1 thou/uL (4.8-10.8)
[2021-12-04] MEDS ORDERED: Potassium Chloride 20 MEQ TAB PO SCH (08:00)
[2021-12-04] MEDS: Pantoprazole 40 MG VIAL IVP SCH ×2 (08:05→20:30)
[2021-12-04] MEDS: Fenofibrate Nanocrystallized 145 MG TAB PO SCH (08:05)
[2021-12-04] MEDS: Nicotine 14 MG PATCH TD SCH (08:06)
[2021-12-04 13:04] VITALS: BMI 29.9
[2021-12-04] MEDS: HumaLOG 300 UNITS/3 ML VIAL SC PRN (16:18)
[2021-12-04] MEDS: Insulin Glargine 30 UNITS/0.3 ML VIAL SC SCH (20:30)
[2021-12-04] MEDS: guaiFENesin/DM ER PO SCH (20:30)
[2021-12-04] MEDS: Zolpidem Tartrate 5 MG TAB PO PRN (20:31)
[2021-12-04] MEDS: Mometasone/Formoterol 200/5 60 PUFF INH SCH (23:21)
[2021-12-05 05:17] LABS: Hemoglobin 10.3 g/dL (14.0-18.0); Mean Corpuscular HGB CONC 33.6 g/dL (32.0-36.0); Mean Corpuscular Hemoglobin 29.8 pg (27.0-31.0); Mean Corpuscular Volume 88.5 fL (78.0-98.0); Mean Platelet Volume 10.6 fL (7.4-10.4); Platelet Count 105 thou/uL (130-400); RBC Distribution Width 17.3 % (11.5-14.5); Red Blood Cell (RBC) Count 3.47 mill/uL (4.70-6.10)
[2021-12-05 05:25] LABS: Anion Gap 13 mmol/L (10-20); BUN (Urea Nitrogen) 23 mg/dL (8.4-25.7); Calc. Creatinine Clearance 135 mL/min (70-130); Calcium 8.4 mg/dL (7.8-10.44); Carbon Dioxide 26 mmol/L (23-31); Chloride 102 mmol/L (98-107); Estimated GFR 103; Glucose 178 mg/dL (80-115); Potassium 3.2 mmol/L (3.5-5.1); Sodium 138 mmol/L (136-145)
[2021-12-05 05:42] LABS: Band 2 % (5-11); Hypochromia SLIGHT = 6-15 cells (100X) (0-5/hpf); Lymphocytes 11 % (21-51); MDiff Complete? YES; Monocytes 12 % (0-10); Neutrophil 75 % (42-75); Platelet Morphology Comment Appears Decreased
[2021-12-05] MEDS: Mometasone/Formoterol 200/5 60 PUFF INH SCH ×2 (06:47→22:23)
[2021-12-05] MEDS ORDERED: Potassium Chloride 20 MEQ TAB PO SCH (08:00)
[2021-12-05] MEDS ORDERED: Magnesium 2 GM/50 ML(in water) 2 GM in Premix Bag 1 BAG IVPB SCH (08:00)
[2021-12-05] MEDS ORDERED: Albuterol Sulfate 2.5 mg/3 ml Neb NEB PRN (08:30)
[2021-12-05] MEDS ORDERED: Electrolyte Replacement Protocol FS PRN (08:30)
[2021-12-05] MEDS: Pantoprazole 40 MG VIAL IVP SCH ×2 (09:26→20:02)
[2021-12-05] MEDS: Fenofibrate Nanocrystallized 145 MG TAB PO SCH (09:27)
[2021-12-05] MEDS: Nicotine 14 MG PATCH TD SCH (09:27)
[2021-12-05] MEDS: guaiFENesin/DM ER PO SCH ×2 (10:25→20:07)
[2021-12-05] MEDS: HumaLOG 300 UNITS/3 ML VIAL SC PRN ×2 (12:09→17:22)
[2021-12-05] MEDS: Sodium Chloride 0.9% 1,000 ML IV SCH (12:11)
[2021-12-05 12:13] LABS: ALT (SGPT) 218 U/L (8-55); AST (SGOT) 158 U/L (5-34); Albumin 3.1 g/dL (3.4-4.8); Alkaline Phosphatase 252 U/L (40-110); Bilirubin, Total 21.9 mg/dL (0.2-1.2); Protein, Total 4.8 g/dL (5.8-8.1)
[2021-12-05 14:04] LABS: Bilirubin, Direct 15.9 mg/dL (0.1-0.3)
[2021-12-05] MEDS: Insulin Glargine 30 UNITS/0.3 ML VIAL SC SCH (20:03)
[2021-12-05] MEDS: Zolpidem Tartrate 5 MG TAB PO PRN (20:16)
[2021-12-06 05:37] LABS: Hemoglobin A1c 5.7 % (4.0-6.0)
[2021-12-06 06:00] LABS: Albumin 2.9 g/dL (3.4-4.8)
[2021-12-06] MEDS ORDERED: PEGFILGRASTIM-JMDB 6 MG/0.6 ML SYRINGE SQ SCH (06:00)
[2021-12-06 06:12] LABS: Band 1 % (5-11); Elliptocytes SLIGHT = 2-5 cells (100X) (0-1/hpf); Eosinophils 1 % (0-10); Hemoglobin 10.3 g/dL (14.0-18.0); Lymphocytes 1 % (21-51); MDiff Complete? YES; Mean Corpuscular HGB CONC 33.5 g/dL (32.0-36.0); Mean Corpuscular Hemoglobin 30.4 pg (27.0-31.0); Mean Corpuscular Volume 90.7 fL (78.0-98.0); Mean Platelet Volume 10.8 fL (7.4-10.4); Monocytes 3 % (0-10); Neutrophil 94 % (42-75); Ovalocytes SLIGHT = 2-5 cells (100X) (0-1/hpf); Platelet Count 97 thou/uL (130-400); Platelet Morphology Comment Appears Decreased; RBC Distribution Width 17.6 % (11.5-14.5); Red Blood Cell (RBC) Count 3.39 mill/uL (4.70-6.10); White Blood Cell (WBC) Count 17.9 thou/uL (4.8-10.8)
[2021-12-06 06:26] LABS: ALT (SGPT) 203 U/L (8-55); AST (SGOT) 139 U/L (5-34); Alkaline Phosphatase 239 U/L (40-110); Anion Gap 17 mmol/L (10-20); BUN (Urea Nitrogen) 25 mg/dL (8.4-25.7); Bilirubin, Total 18.9 mg/dL (0.2-1.2); Calc. Creatinine Clearance 145 mL/min (70-130); Calcium 8.1 mg/dL (7.8-10.44); Carbon Dioxide 24 mmol/L (23-31); Chloride 103 mmol/L (98-107); Estimated GFR 105; Globulin 1.6 g/dL (2.4-3.5); Glucose 229 mg/dL (80-115); Potassium 3.8 mmol/L (3.5-5.1); Protein, Total 4.4 g/dL (5.8-8.1); Sodium 140 mmol/L (136-145)
[2021-12-06] MEDS: HumaLOG 300 UNITS/3 ML VIAL SC PRN ×4 (06:40→20:05)
[2021-12-06] MEDS: Mometasone/Formoterol 200/5 60 PUFF INH SCH ×2 (07:24→19:47)
[2021-12-06] MEDS: Pantoprazole 40 MG VIAL IVP SCH ×2 (09:32→20:00)
[2021-12-06] MEDS: Fenofibrate Nanocrystallized 145 MG TAB PO SCH (09:33)
[2021-12-06] MEDS: Nicotine 14 MG PATCH TD SCH (09:33)
[2021-12-06] MEDS: guaiFENesin/DM ER PO SCH ×2 (09:33→19:58)
[2021-12-06] MEDS: Zolpidem Tartrate 5 MG TAB PO PRN (19:58)
[2021-12-06] MEDS: Insulin Glargine 30 UNITS/0.3 ML VIAL SC SCH (19:59)
[2021-12-07] MEDS: Mometasone/Formoterol 200/5 60 PUFF INH SCH ×2 (07:32→18:47)
[2021-12-07 07:44] LABS: INR-International Normal Ratio 1.3; PTT 29.8 sec (22.9-36.1); Prothrombin Time 16.4 sec (12.0-14.7)
[2021-12-07 07:45] LABS: Fibrinogen 164 mg/dL (253-463)
[2021-12-07 07:50] LABS: ALT (SGPT) 189 U/L (8-55); AST (SGOT) 124 U/L (5-34); Albumin 2.7 g/dL (3.4-4.8); Alkaline Phosphatase 241 U/L (40-110); Anion Gap 10 mmol/L (10-20); BUN (Urea Nitrogen) 28 mg/dL (8.4-25.7); Bilirubin, Total 16.2 mg/dL (0.2-1.2); Calc. Creatinine Clearance 127 mL/min (70-130); Calcium 8.2 mg/dL (7.8-10.44); Carbon Dioxide 31 mmol/L (23-31); Chloride 101 mmol/L (98-107); Estimated GFR 101; Globulin 1.6 g/dL (2.4-3.5); Glucose 151 mg/dL (80-115); Potassium 4.3 mmol/L (3.5-5.1); Protein, Total 4.3 g/dL (5.8-8.1); Sodium 138 mmol/L (136-145)
[2021-12-07 07:54] LABS: Hemoglobin 10.2 g/dL (14.0-18.0); Mean Corpuscular HGB CONC 32.2 g/dL (32.0-36.0); Mean Corpuscular Hemoglobin 29.6 pg (27.0-31.0); Mean Platelet Volume 10.9 fL (7.4-10.4); Platelet Count 83 thou/uL (130-400); RBC Distribution Width 18.1 % (11.5-14.5); Red Blood Cell (RBC) Count 3.45 mill/uL (4.70-6.10); White Blood Cell (WBC) Count 36.1 thou/uL (4.8-10.8)
[2021-12-07 07:55] LABS: Platelet Count 83 thou/uL (130-400)
[2021-12-07] MEDS: Fenofibrate Nanocrystallized 145 MG TAB PO SCH (08:58)
[2021-12-07] MEDS: Pantoprazole 40 MG VIAL IVP SCH ×2 (08:58→21:00)
[2021-12-07] MEDS: guaiFENesin/DM ER PO SCH ×2 (08:59→21:14)
[2021-12-07] MEDS: Nicotine 14 MG PATCH TD SCH (08:59)
[2021-12-07 09:40] LABS: Band 16 % (5-11); Hypochromia SLIGHT = 6-15 cells (100X) (0-5/hpf); Lymphocytes 1 % (21-51); MDiff Complete? YES; Monocytes 1 % (0-10); Neutrophil 82 % (42-75); Platelet Morphology Comment Appears Decreased; Polychromasia SLIGHT = 2-3 cells (100X) (0-2/hpf); Target Cells MODERATE= 6-15 cells (100X) (0-1/hpf)
[2021-12-07] MEDS: Insulin Glargine 30 UNITS/0.3 ML VIAL SC SCH (21:00)
[2021-12-07] MEDS: Zolpidem Tartrate 5 MG TAB PO PRN (21:00)
[2021-12-07] MEDS: HumaLOG 300 UNITS/3 ML VIAL SC PRN (21:03)
[2021-12-08 05:27] LABS: ALT (SGPT) 197 U/L (8-55); AST (SGOT) 139 U/L (5-34); Albumin 2.6 g/dL (3.4-4.8); Alkaline Phosphatase 265 U/L (40-110); Anion Gap 11 mmol/L (10-20); BUN (Urea Nitrogen) 30 mg/dL (8.4-25.7); Bilirubin, Total 17.3 mg/dL (0.2-1.2); Calc. Creatinine Clearance 141 mL/min (70-130); Calcium 8.4 mg/dL (7.8-10.44); Carbon Dioxide 30 mmol/L (23-31); Chloride 101 mmol/L (98-107); Estimated GFR 104; Globulin 1.8 g/dL (2.4-3.5); Glucose 134 mg/dL (80-115); Potassium 4.2 mmol/L (3.5-5.1); Protein, Total 4.4 g/dL (5.8-8.1); Sodium 138 mmol/L (136-145)
[2021-12-08 05:57] LABS: Anisocytosis SLIGHT = 6-15 cells (100X) (0-5/hpf); Band 22 % (5-11); Hemoglobin 10.3 g/dL (14.0-18.0); Lymphocytes 3 % (21-51); MDiff Complete? YES; Mean Corpuscular HGB CONC 32.5 g/dL (32.0-36.0); Mean Corpuscular Hemoglobin 29.8 pg (27.0-31.0); Mean Corpuscular Volume 91.7 fL (78.0-98.0); Mean Platelet Volume 7.5 fL (7.4-10.4); Monocytes 3 % (0-10); Neutrophil 72 % (42-75); Platelet Count 77 thou/uL (130-400); Platelet Morphology Comment Appears Decreased; RBC Distribution Width 18.4 % (11.5-14.5); Red Blood Cell (RBC) Count 3.47 mill/uL (4.70-6.10); Target Cells SLIGHT = 2-5 cells (100X) (0-1/hpf); White Blood Cell (WBC) Count 36.3 thou/uL (4.8-10.8)
[2021-12-08] MEDS: Mometasone/Formoterol 200/5 60 PUFF INH SCH ×2 (07:35→19:38)
[2021-12-08] MEDS: guaiFENesin/DM ER PO SCH ×2 (08:57→22:33)
[2021-12-08] MEDS: Nicotine 14 MG PATCH TD SCH (08:58)
[2021-12-08] MEDS: Pantoprazole 40 MG VIAL IVP SCH ×2 (08:58→22:34)
[2021-12-08] MEDS: Fenofibrate Nanocrystallized 145 MG TAB PO SCH (08:58)
[2021-12-08] MEDS: HumaLOG 300 UNITS/3 ML VIAL SC PRN ×2 (16:06→22:34)
[2021-12-08] MEDS: Insulin Glargine 30 UNITS/0.3 ML VIAL SC SCH (22:33)
[2021-12-09] MEDS: Zolpidem Tartrate 5 MG TAB PO PRN ×2 (01:07→20:49)
[2021-12-09 05:35] LABS: ALT (SGPT) 214 U/L (8-55); AST (SGOT) 165 U/L (5-34); Albumin 2.6 g/dL (3.4-4.8); Alkaline Phosphatase 282 U/L (40-110); Anion Gap 12 mmol/L (10-20); BUN (Urea Nitrogen) 26 mg/dL (8.4-25.7); Bilirubin, Total 16.8 mg/dL (0.2-1.2); Calc. Creatinine Clearance 150 mL/min (70-130); Calcium 8.1 mg/dL (7.8-10.44); Carbon Dioxide 28 mmol/L (23-31); Chloride 102 mmol/L (98-107); Estimated GFR 106; Globulin 1.6 g/dL (2.4-3.5); Glucose 149 mg/dL (80-115); Potassium 4.1 mmol/L (3.5-5.1); Protein, Total 4.2 g/dL (5.8-8.1); Sodium 138 mmol/L (136-145)
[2021-12-09 05:43] LABS: Band 21 % (5-11); Hemoglobin 9.9 g/dL (14.0-18.0); Lymphocytes 3 % (21-51); MDiff Complete? YES; Mean Corpuscular HGB CONC 34.5 g/dL (32.0-36.0); Mean Corpuscular Hemoglobin 31.6 pg (27.0-31.0); Mean Corpuscular Volume 91.5 fL (78.0-98.0); Mean Platelet Volume 12.1 fL (7.4-10.4); Monocytes 5 % (0-10); Neutrophil 71 % (42-75); Platelet Count 65 thou/uL (130-400); Platelet Morphology Comment Appears Decreased; RBC Distribution Width 18.4 % (11.5-14.5); Red Blood Cell (RBC) Count 3.14 mill/uL (4.70-6.10); Target Cells MODERATE= 6-15 cells (100X) (0-1/hpf); White Blood Cell (WBC) Count 27.9 thou/uL (4.8-10.8)
[2021-12-09] MEDS: Mometasone/Formoterol 200/5 60 PUFF INH SCH ×2 (07:23→19:45)
[2021-12-09] MEDS: Fenofibrate Nanocrystallized 145 MG TAB PO SCH (08:22)
[2021-12-09] MEDS: guaiFENesin/DM ER PO SCH ×2 (08:23→20:48)
[2021-12-09] MEDS: Pantoprazole 40 MG VIAL IVP SCH ×2 (08:24→20:49)
[2021-12-09] MEDS: Nicotine 14 MG PATCH TD SCH (09:06)
[2021-12-09] MEDS ORDERED: Furosemide 20 MG TAB PO SCH (15:30)
[2021-12-09] MEDS: Insulin Glargine 30 UNITS/0.3 ML VIAL SC SCH (20:48)
[2021-12-09] MEDS: HumaLOG 300 UNITS/3 ML VIAL SC PRN (20:49)
[2021-12-10 05:22] LABS: ALT (SGPT) 225 U/L (8-55); AST (SGOT) 173 U/L (5-34); Albumin 2.5 g/dL (3.4-4.8); Alkaline Phosphatase 332 U/L (40-110); Anion Gap 14 mmol/L (10-20); BUN (Urea Nitrogen) 21 mg/dL (8.4-25.7); Bilirubin, Total 15.2 mg/dL (0.2-1.2); Calc. Creatinine Clearance 160 mL/min (70-130); Calcium 8.2 mg/dL (7.8-10.44); Carbon Dioxide 25 mmol/L (23-31); Chloride 100 mmol/L (98-107); Estimated GFR 108; Globulin 1.9 g/dL (2.4-3.5); Glucose 100 mg/dL (80-115); Potassium 4.1 mmol/L (3.5-5.1); Protein, Total 4.4 g/dL (5.8-8.1); Sodium 135 mmol/L (136-145)
[2021-12-10 06:03] LABS: Anisocytosis SLIGHT = 6-15 cells (100X) (0-5/hpf); Band 18 % (5-11); Hemoglobin 9.5 g/dL (14.0-18.0); Lymphocytes 14 % (21-51); MDiff Complete? YES; Mean Corpuscular HGB CONC 32.7 g/dL (32.0-36.0); Mean Corpuscular Hemoglobin 29.9 pg (27.0-31.0); Mean Corpuscular Volume 91.3 fL (78.0-98.0); Mean Platelet Volume 7.8 fL (7.4-10.4); Monocytes 6 % (0-10); Neutrophil 62 % (42-75); Platelet Count 54 thou/uL (130-400); Platelet Morphology Comment Appears Decreased; RBC Distribution Width 18.9 % (11.5-14.5); Red Blood Cell (RBC) Count 3.17 mill/uL (4.70-6.10); Target Cells SLIGHT = 2-5 cells (100X) (0-1/hpf)
[2021-12-10] MEDS: Mometasone/Formoterol 200/5 60 PUFF INH SCH ×2 (07:18→18:49)
[2021-12-10] MEDS: Nicotine 14 MG PATCH TD SCH (10:23)
[2021-12-10] MEDS: Fenofibrate Nanocrystallized 145 MG TAB PO SCH (10:23)
[2021-12-10] MEDS: Pantoprazole 40 MG VIAL IVP SCH ×2 (10:24→21:04)
[2021-12-10] MEDS: guaiFENesin/DM ER PO SCH ×2 (10:24→21:04)
[2021-12-10] MEDS ORDERED: Furosemide 20 MG TAB PO SCH (11:30)
[2021-12-10] MEDS: HumaLOG 300 UNITS/3 ML VIAL SC PRN (17:37)
[2021-12-10] MEDS: Zolpidem Tartrate 5 MG TAB PO PRN (21:05)
[2021-12-10] MEDS: Insulin Glargine 30 UNITS/0.3 ML VIAL SC SCH (21:05)
[2021-12-11] MEDS: Mometasone/Formoterol 200/5 60 PUFF INH SCH ×2 (07:11→19:18)
[2021-12-11] MEDS: Pantoprazole 40 MG VIAL IVP SCH ×2 (08:35→20:56)
[2021-12-11] MEDS: Fenofibrate Nanocrystallized 145 MG TAB PO SCH (08:35)
[2021-12-11] MEDS: guaiFENesin/DM ER PO SCH ×2 (08:35→20:56)
[2021-12-11] MEDS ORDERED: Ketamine 50 MG/ML (10ML VIAL) ONE (10:32)
[2021-12-11] MEDS ORDERED: fentaNYL Citrate/PF 100 MCG/2 ML SYRINGE ONE (10:33)
[2021-12-11] MEDS: Nicotine 14 MG PATCH TD SCH (10:33)
[2021-12-11] MEDS ORDERED: Midazolam HCl 2 mg/2 ml Vial ONE (10:33)
[2021-12-11] MEDS ORDERED: Bupivacaine/Epinephrine 0.25% 30 ML VIAL ONE (12:01)
[2021-12-11] MEDS ORDERED: Lidocaine 2% 10 ML INJ ONE (12:01)
[2021-12-11] MEDS ORDERED: PROPOFOL 200 MG/20 ML VIAL ONE (12:31)
[2021-12-11] MEDS ORDERED: HYDROcodone/Acetaminophen 7.5/325 mg Tablet PO PRN (13:02)
[2021-12-11] MEDS: Insulin Glargine 30 UNITS/0.3 ML VIAL SC SCH (20:56)
[2021-12-11] MEDS: Zolpidem Tartrate 5 MG TAB PO PRN (20:56)
[2021-12-12] MEDS: Mometasone/Formoterol 200/5 60 PUFF INH SCH (06:48)
[2021-12-12] MEDS: Fenofibrate Nanocrystallized 145 MG TAB PO SCH (08:51)
[2021-12-12] MEDS: Nicotine 14 MG PATCH TD SCH (08:52)
[2021-12-12] MEDS: Pantoprazole 40 MG VIAL IVP SCH (08:52)
[2021-12-12] MEDS: guaiFENesin/DM ER PO SCH (08:52)
[2021-12-12 14:34] VITALS: BP 117/75; TEMP 98.4
[2021-12-12 14:42] LABS: ALT (SGPT) 185 U/L (8-55); AST (SGOT) 140 U/L (5-34); Albumin 2.5 g/dL (3.4-4.8); Alkaline Phosphatase 449 U/L (40-110); Anion Gap 16 mmol/L (10-20); BUN (Urea Nitrogen) 9 mg/dL (8.4-25.7); Bilirubin, Total 14.8 mg/dL (0.2-1.2); Calc. Creatinine Clearance 165 mL/min (70-130); Calcium 8.2 mg/dL (7.8-10.44); Carbon Dioxide 21 mmol/L (23-31); Chloride 95 mmol/L (98-107); Estimated GFR 109; Globulin 2.4 g/dL (2.4-3.5); Glucose 120 mg/dL (80-115); Potassium 3.9 mmol/L (3.5-5.1); Protein, Total 4.9 g/dL (5.8-8.1); Sodium 128 mmol/L (136-145)
[2021-12-12 14:45] LABS: Anisocytosis SLIGHT = 6-15 cells (100X) (0-5/hpf); Band 10 % (5-11); Hemoglobin 9.9 g/dL (14.0-18.0); Lymphocytes 6 % (21-51); MDiff Complete? YES; Mean Corpuscular HGB CONC 32.8 g/dL (32.0-36.0); Mean Corpuscular Hemoglobin 30.2 pg (27.0-31.0); Mean Platelet Volume 8.6 fL (7.4-10.4); Monocytes 4 % (0-10); Myelocyte 3 % (0-0); Neutrophil 77 % (42-75); Platelet Count 52 thou/uL (130-400); Platelet Morphology Comment Appears Decreased; Polychromasia SLIGHT = 2-3 cells (100X) (0-2/hpf); RBC Distribution Width 20.4 % (11.5-14.5); Red Blood Cell (RBC) Count 3.28 mill/uL (4.70-6.10); White Blood Cell (WBC) Count 15.5 thou/uL (4.8-10.8)
== END 2021-12-12 15:00 | disposition swing bed (61) | DRG 180 ==
LOC: ERS 23:31 → T4-B 11-24 05:36 → ERHOLD 11-24 05:36 → T4-B 11-24 08:03 → MSONC 11-30 18:12 → CCU 12-02 16:41 → IMCU/EMU 12-03 09:05 → MSONC 12-04 12:40
PROVIDERS: ADMIT Student in an Organized Health Care Education/Training Program; ATTEND Internal Medicine
PROC: 0DBK8ZZ Excision of Ascending Colon, Via Natural or Artificial Opening Endoscopic (ICD-10-PCS; 2021-11-27)
PROC: 0DBL8ZZ Excision of Transverse Colon, Via Natural or Artificial Opening Endoscopic (ICD-10-PCS; 2021-11-27)
PROC: 0DB68ZX Excision of Stomach, Via Natural or Artificial Opening Endoscopic, Diagnostic (ICD-10-PCS; 2021-11-27)
PROC: 0W3P8ZZ Control Bleeding in Gastrointestinal Tract, Via Natural or Artificial Opening Endoscopic (ICD-10-PCS; 2021-12-01)
PROC: 6A550Z2 Pheresis of Platelets, Single (ICD-10-PCS; 2021-12-02)
PROC: 30233N1 Transfusion of Nonautologous Red Blood Cells into Peripheral Vein, Percutaneous Approach (ICD-10-PCS; 2021-12-02)
PROC: 3E03305 Introduction of Other Antineoplastic into Peripheral Vein, Percutaneous Approach (ICD-10-PCS; principal; 2021-12-04)
PROC: 02HV33Z Insertion of Infusion Device into Superior Vena Cava, Percutaneous Approach (ICD-10-PCS; 2021-12-11)
DX: C34.90 Malignant neoplasm of unspecified part of unspecified bronchus or lung (principal); J18.9 Pneumonia, unspecified organism; J96.01 Acute respiratory failure with hypoxia; R57.8 Other shock; K81.0 Acute cholecystitis; E87.1 Hypo-osmolality and hyponatremia; E44.0 Moderate protein-calorie malnutrition; K22.10 Ulcer of esophagus without bleeding; K62.5 Hemorrhage of anus and rectum; D62 Acute posthemorrhagic anemia; K91.840 Postprocedural hemorrhage of a digestive system organ or structure following a digestive system procedure; C78.7 Secondary malignant neoplasm of liver and intrahepatic bile duct; Z51.5 Encounter for palliative care; F17.210 Nicotine dependence, cigarettes, uncomplicated; E78.5 Hyperlipidemia, unspecified; R59.0 Localized enlarged lymph nodes; D69.6 Thrombocytopenia, unspecified; E87.6 Hypokalemia; D72.829 Elevated white blood cell count, unspecified; J45.909 Unspecified asthma, uncomplicated; K74.60 Unspecified cirrhosis of liver; I95.9 Hypotension, unspecified; E77.8 Other disorders of glycoprotein metabolism; K64.8 Other hemorrhoids; K21.9 Gastro-esophageal reflux disease without esophagitis; E11.65 Type 2 diabetes mellitus with hyperglycemia; D12.2 Benign neoplasm of ascending colon; D12.3 Benign neoplasm of transverse colon; K64.4 Residual hemorrhoidal skin tags; K57.30 Diverticulosis of large intestine without perforation or abscess without bleeding; Z20.822 Contact with and (suspected) exposure to COVID-19; W01.0XXA Fall on same level from slipping, tripping and stumbling without subsequent striking against object, initial encounter; Z86.010 Personal history of colon polyps; Z79.899 Other long term (current) drug therapy; Z88.8 Allergy status to other drugs, medicaments and biological substances; Z88.2 Allergy status to sulfonamides; Z80.8 Family history of malignant neoplasm of other organs or systems; Z83.6 Family history of other diseases of the respiratory system; Z79.51 Long term (current) use of inhaled steroids; Z98.890 Other specified postprocedural states; Z90.89 Acquired absence of other organs; Z68.30 Body mass index [BMI] 30.0-30.9, adult
CPT/HCPCS: 36415; 36416; 36430; 36600; 70553; 71045; 71275; 74177; 74183; 76705; 80048; 80053; 80074; 80076; 80143; 81001; 81256; 82105; 82140; 82248; 82378; 82553; 82728; 82805; 83010; 83036; 83516; 83540; 83550; 83605; 83690; 83735; 83880; 84100; 84145; 84484; 85025; 85046; 85049; 85060; 85300; 85362; 85379; 85384; 85610; 85730; 86015; 86038; 86225; 86235; 86301; 86850; 86900; 86901; 87040; 87081; 87086; 87389; 87449; 87811; 87899; 88305; 88341; 88342; 88360; 93005; 94640; 94664; 96365; 96367; 96375; 80307; A9579; C1776; C1788; C9113; G0103; J0696; J1100; J1642; J1815; J1956; J2250; J2370; J2469; J2704; J2930; J3370; J3475; J3480; J3490; J7030; J7050; J7611; J7620; J9045; J9181; P9016; P9035; P9047; Q5108; Q9967; U0002; U0003; U0005

== ENCOUNTER 2021-12-16 21:08 | Inpatient (IN) | payer BC ==
[2021-12-16] MEDS ORDERED: HumaLOG 300 UNITS/3 ML VIAL SC PRN ×2 (23:15)
[2021-12-16] MEDS ORDERED: HYDROcodone/Acetaminophen 5/325 mg Tablet PO PRN (23:15)
[2021-12-16] MEDS ORDERED: Dextrose 50% Abboject 50 ML SYRINGE SLOW IVP PRN (23:15)
[2021-12-16] MEDS ORDERED: Dextrose 5% in Water 1,000 ML IV PRN (23:15)
[2021-12-16] MEDS ORDERED: Bisacodyl 5 MG TAB PO PRN (23:15)
[2021-12-16 23:37] LABS: Anion Gap 12 mmol/L (10-20); BUN (Urea Nitrogen) 6 mg/dL (8.4-25.7); Calc. Creatinine Clearance 0 mL/min (70-130); Carbon Dioxide 23 mmol/L (23-31); Chloride 91 mmol/L (98-107); Estimated GFR 114; Glucose 146 mg/dL (80-115); Potassium 3.7 mmol/L (3.5-5.1); Sodium 122 mmol/L (136-145)
[2021-12-16] MEDS: Zolpidem Tartrate 5 MG TAB PO PRN (23:47)
[2021-12-16] MEDS: Nicotine 21 MG PATCH TD SCH (23:47)
[2021-12-17] VITALS: BMI 26.6
[2021-12-17 05:58] LABS: ALT (SGPT) 144 U/L (8-55); AST (SGOT) 106 U/L (5-34); Albumin 2.9 g/dL (3.4-4.8); Alkaline Phosphatase 571 U/L (40-110); Anion Gap 16 mmol/L (10-20); BUN (Urea Nitrogen) 6 mg/dL (8.4-25.7); Bilirubin, Total 13.7 mg/dL (0.2-1.2); Calc. Creatinine Clearance 147 mL/min (70-130); Carbon Dioxide 22 mmol/L (23-31); Chloride 97 mmol/L (98-107); Estimated GFR 109; Globulin 2.7 g/dL (2.4-3.5); Glucose 127 mg/dL (80-115); Protein, Total 5.6 g/dL (5.8-8.1); Sodium 132 mmol/L (136-145)
[2021-12-17 06:05] LABS: Mean Corpuscular HGB CONC 32.5 g/dL (32.0-36.0); Mean Corpuscular Hemoglobin 30.8 pg (27.0-31.0); Mean Corpuscular Volume 94.8 fL (78.0-98.0); Mean Platelet Volume 12.3 fL (7.4-10.4); Platelet Count 99 thou/uL (130-400); RBC Distribution Width 22.5 % (11.5-14.5); Red Blood Cell (RBC) Count 3.23 mill/uL (4.70-6.10); White Blood Cell (WBC) Count 29.4 thou/uL (4.8-10.8)
[2021-12-17] MEDS: Mometasone 100 MCG/Formoterol 5 MCG 120 PUFF INHALER INH SCH ×2 (07:26→21:35)
[2021-12-17 08:52] LABS: Anion Gap 15 mmol/L (10-20); BUN (Urea Nitrogen) 7 mg/dL (8.4-25.7); Calc. Creatinine Clearance 140 mL/min (70-130); Carbon Dioxide 23 mmol/L (23-31); Chloride 101 mmol/L (98-107); Estimated GFR 108; Glucose 159 mg/dL (80-115); Potassium 3.3 mmol/L (3.5-5.1); Sodium 136 mmol/L (136-145)
[2021-12-17 09:43] LABS: Anisocytosis MODERATE=16-30 cells (100X) (0-5/hpf); Band 32 % (5-11); Hypochromia SLIGHT = 6-15 cells (100X) (0-5/hpf); Lymphocytes 6 % (21-51); MDiff Complete? YES; Metamyelocyte 1 % (0-0); Monocytes 6 % (0-10); Myelocyte 2 % (0-0); Neutrophil 53 % (42-75); Platelet Morphology Comment Appears Decreased; Polychromasia MODERATE = 3-4 cells (100X) (0-2/hpf); Spherocytes SLIGHT = 1-5 cells (100X) (None Seen); Target Cells SLIGHT = 2-5 cells (100X) (0-1/hpf)
[2021-12-17] MEDS: Enoxaparin Sodium 30 MG/0.3 ML SYRINGE SC SCH (10:28)
[2021-12-17] MEDS: Sodium Chloride 1 GM TAB PO SCH (10:28)
[2021-12-17 13:45] LABS: Anion Gap 15 mmol/L (10-20); BUN (Urea Nitrogen) 6 mg/dL (8.4-25.7); Calc. Creatinine Clearance 144 mL/min (70-130); Carbon Dioxide 24 mmol/L (23-31); Chloride 104 mmol/L (98-107); Estimated GFR 109; Glucose 161 mg/dL (80-115); Potassium 3.2 mmol/L (3.5-5.1); Sodium 140 mmol/L (136-145)
[2021-12-17] MEDS: Potassium Chloride 20 MEQ TAB PO SCH ×2 (14:20→17:19)
[2021-12-17 15:03] LABS: Anion Gap 17 mmol/L (10-20); BUN (Urea Nitrogen) 6 mg/dL (8.4-25.7); Calc. Creatinine Clearance 144 mL/min (70-130); Calcium 8.9 mg/dL (7.8-10.44); Carbon Dioxide 23 mmol/L (23-31); Chloride 104 mmol/L (98-107); Estimated GFR 109; Glucose 191 mg/dL (80-115); Potassium 3.4 mmol/L (3.5-5.1); Sodium 141 mmol/L (136-145)
[2021-12-17 15:10] LABS: Magnesium 1.9 mg/dL (1.6-2.6)
[2021-12-17] MEDS: Dextrose 5% in Water 1,000 ML IV SCH (17:18)
[2021-12-17 19:07] LABS: Anion Gap 15 mmol/L (10-20); BUN (Urea Nitrogen) 6 mg/dL (8.4-25.7); Calc. Creatinine Clearance 135 mL/min (70-130); Calcium 8.7 mg/dL (7.8-10.44); Carbon Dioxide 24 mmol/L (23-31); Chloride 104 mmol/L (98-107); Estimated GFR 107; Glucose 196 mg/dL (80-115); Potassium 3.8 mmol/L (3.5-5.1); Sodium 139 mmol/L (136-145)
[2021-12-17] MEDS: Zolpidem Tartrate 5 MG TAB PO PRN (20:55)
[2021-12-17 23:44] LABS: Anion Gap 12 mmol/L (10-20); BUN (Urea Nitrogen) 6 mg/dL (8.4-25.7); Calc. Creatinine Clearance 144 mL/min (70-130); Calcium 8.4 mg/dL (7.8-10.44); Carbon Dioxide 26 mmol/L (23-31); Chloride 104 mmol/L (98-107); Estimated GFR 109; Glucose 168 mg/dL (80-115); Potassium 3.9 mmol/L (3.5-5.1); Sodium 138 mmol/L (136-145)
[2021-12-18] MEDS: Nicotine 21 MG PATCH TD SCH (00:41)
[2021-12-18] MEDS: Dextrose 5% in Water 1,000 ML IV SCH (04:21)
[2021-12-18 06:14] LABS: ALT (SGPT) 125 U/L (8-55); AST (SGOT) 97 U/L (5-34); Albumin 2.6 g/dL (3.4-4.8); Alkaline Phosphatase 529 U/L (40-110); Anion Gap 12 mmol/L (10-20); BUN (Urea Nitrogen) 6 mg/dL (8.4-25.7); Bilirubin, Total 10.2 mg/dL (0.2-1.2); Calc. Creatinine Clearance 155 mL/min (70-130); Calcium 8.5 mg/dL (7.8-10.44); Carbon Dioxide 27 mmol/L (23-31); Chloride 101 mmol/L (98-107); Estimated GFR 111; Globulin 2.7 g/dL (2.4-3.5); Glucose 130 mg/dL (80-115); Potassium 3.6 mmol/L (3.5-5.1); Protein, Total 5.3 g/dL (5.8-8.1); Sodium 136 mmol/L (136-145)
[2021-12-18] MEDS: Mometasone 100 MCG/Formoterol 5 MCG 120 PUFF INHALER INH SCH ×2 (07:55→19:27)
[2021-12-18] MEDS ORDERED: Potassium Chloride 20 MEQ TAB PO SCH (09:30)
[2021-12-18] MEDS: Enoxaparin Sodium 30 MG/0.3 ML SYRINGE SC SCH (09:37)
[2021-12-18 10:34] LABS: Anion Gap 15 mmol/L (10-20); BUN (Urea Nitrogen) 6 mg/dL (8.4-25.7); Calc. Creatinine Clearance 144 mL/min (70-130); Calcium 8.8 mg/dL (7.8-10.44); Carbon Dioxide 24 mmol/L (23-31); Chloride 100 mmol/L (98-107); Estimated GFR 109; Glucose 166 mg/dL (80-115); Potassium 3.6 mmol/L (3.5-5.1); Sodium 135 mmol/L (136-145)
[2021-12-18 20:20] VITALS: TEMP 98.2
[2021-12-18] MEDS: Sodium Chloride 1 GM TAB PO SCH (20:22)
[2021-12-18] MEDS: Zolpidem Tartrate 5 MG TAB PO PRN (20:28)
[2021-12-19] MEDS: Nicotine 21 MG PATCH TD SCH (06:04)
[2021-12-19 06:48] LABS: ALT (SGPT) 125 U/L (8-55); AST (SGOT) 110 U/L (5-34); Albumin 2.6 g/dL (3.4-4.8); Alkaline Phosphatase 596 U/L (40-110); Anion Gap 12 mmol/L (10-20); BUN (Urea Nitrogen) 9 mg/dL (8.4-25.7); Bilirubin, Total 9.9 mg/dL (0.2-1.2); Calc. Creatinine Clearance 154 mL/min (70-130); Calcium 8.3 mg/dL (7.8-10.44); Carbon Dioxide 26 mmol/L (23-31); Chloride 95 mmol/L (98-107); Estimated GFR 111; Globulin 2.7 g/dL (2.4-3.5); Glucose 126 mg/dL (80-115); Potassium 3.8 mmol/L (3.5-5.1); Protein, Total 5.3 g/dL (5.8-8.1); Sodium 129 mmol/L (136-145)
[2021-12-19] MEDS: Mometasone 100 MCG/Formoterol 5 MCG 120 PUFF INHALER INH SCH (07:47)
[2021-12-19] MEDS ORDERED: Potassium Chloride 20 MEQ TAB PO SCH ×2 (08:00→17:00)
[2021-12-19 08:36] VITALS: BP 94/64
[2021-12-19] MEDS: Enoxaparin Sodium 30 MG/0.3 ML SYRINGE SC SCH (10:00)
[2021-12-19] MEDS: Sodium Chloride 1 GM TAB PO SCH ×2 (10:02→15:25)
[2021-12-19 14:48] LABS: Anion Gap 13 mmol/L (10-20); BUN (Urea Nitrogen) 10 mg/dL (8.4-25.7); Calc. Creatinine Clearance 152 mL/min (70-130); Calcium 8.4 mg/dL (7.8-10.44); Carbon Dioxide 26 mmol/L (23-31); Chloride 95 mmol/L (98-107); Estimated GFR 111; Glucose 167 mg/dL (80-115); Potassium 3.6 mmol/L (3.5-5.1); Sodium 130 mmol/L (136-145)
[2021-12-20] MEDS ORDERED: Prevnar 13-Val Conj/PF 0.5 ML SYRINGE IM ONE (09:00)
== END 2021-12-19 17:20 | disposition home health service (06) | DRG 644 ==
LOC: MSONC 21:20 → OBSVTOIN 23:15
PROVIDERS: ADMIT Internal Medicine; ATTEND Internal Medicine
DX: E22.2 Syndrome of inappropriate secretion of antidiuretic hormone (principal); C34.90 Malignant neoplasm of unspecified part of unspecified bronchus or lung; C78.7 Secondary malignant neoplasm of liver and intrahepatic bile duct; J44.9 Chronic obstructive pulmonary disease, unspecified; E11.9 Type 2 diabetes mellitus without complications; R79.89 Other specified abnormal findings of blood chemistry; I10 Essential (primary) hypertension; E78.5 Hyperlipidemia, unspecified; K21.9 Gastro-esophageal reflux disease without esophagitis; F17.210 Nicotine dependence, cigarettes, uncomplicated; K74.60 Unspecified cirrhosis of liver; R53.1 Weakness; E87.6 Hypokalemia; T45.8X5A Adverse effect of other primarily systemic and hematological agents, initial encounter; D72.829 Elevated white blood cell count, unspecified; Z88.1 Allergy status to other antibiotic agents; Z88.2 Allergy status to sulfonamides; Z79.899 Other long term (current) drug therapy; Z79.4 Long term (current) use of insulin; Z90.49 Acquired absence of other specified parts of digestive tract; Z90.89 Acquired absence of other organs; Z86.010 Personal history of colon polyps; Z87.11 Personal history of peptic ulcer disease; Z98.890 Other specified postprocedural states
CPT/HCPCS: 36416; 80053; 83735; 85025; J1642; J7070

== ENCOUNTER 2022-02-01 08:42 | Outpatient (CLI) | payer BC ==
[2022-02-01] MEDS ORDERED: Iopamidol 370 76% 100 ML VIAL ONE (10:13)
== END 2022-02-01 08:43 | disposition home or self-care (01) ==
LOC: CT 08:42
PROVIDERS: ATTEND Internal Medicine
DX: C34.80 Malignant neoplasm of overlapping sites of unspecified bronchus and lung (principal); C79.51 Secondary malignant neoplasm of bone; R91.8 Other nonspecific abnormal finding of lung field; R59.0 Localized enlarged lymph nodes; M89.9 Disorder of bone, unspecified; R16.0 Hepatomegaly, not elsewhere classified; K76.89 Other specified diseases of liver; K63.89 Other specified diseases of intestine
CPT/HCPCS: 71260; 74177; Q9967

== ENCOUNTER 2022-02-25 10:21 | Outpatient (CLI) | payer BC ==
[2022-02-25] MEDS ORDERED: Iopamidol 370 76% 100 ML VIAL ONE (11:55)
[2022-02-25] MEDS ORDERED: Magnevist 469MG/ML 20 ML VIAL ONE (12:16)
== END 2022-02-25 10:22 | disposition home or self-care (01) ==
LOC: MRI 10:21
PROVIDERS: ATTEND Internal Medicine
DX: C34.80 Malignant neoplasm of overlapping sites of unspecified bronchus and lung (principal); K57.30 Diverticulosis of large intestine without perforation or abscess without bleeding; R93.2 Abnormal findings on diagnostic imaging of liver and biliary tract; K63.89 Other specified diseases of intestine; D17.79 Benign lipomatous neoplasm of other sites
CPT/HCPCS: 70553; 71260; 74177

== ENCOUNTER 2022-04-12 11:34 | Inpatient (IN) | payer BC ==
[2022-04-12 13:02] LABS: #Eosinphils 0.1 thou/uL (0.0-0.7); #Lymphocytes 1.5 thou/uL (1.20-3.40); #Monocytes 0.7 thou/uL (0.11-0.59); #Neutrophils 6.4 thou/uL (1.40-6.50); %Basophils 0.1 % (0.0-1.0); %Eosinophils 1.1 % (0.0-10.0); %Lymphocytes 17.5 % (21.0-51.0); %Monocytes 8.2 % (0.0-10.0); Hemoglobin 15.6 g/dL (14.0-18.0); Mean Corpuscular HGB CONC 33.7 g/dL (32.0-36.0); Mean Corpuscular Hemoglobin 30.4 pg (27.0-31.0); Mean Corpuscular Volume 90.2 fl (78.0-98.0); Mean Platelet Volume 8.5 fL (7.4-10.4); Platelet Count 168 10x3/uL (130-400); RBC Distribution Width 11.6 % (11.5-14.5); Red Blood Cell (RBC) Count 5.15 mill/uL (4.70-6.10); White Blood Cell (WBC) Count 8.7 10x3/uL (4.8-10.8)
[2022-04-12 13:09] LABS: ALT (SGPT) 59 U/L (8-55); AST (SGOT) 59 U/L (5-34); Albumin 4.3 g/dL (3.4-4.8); Alkaline Phosphatase 131 U/L (40-110); Anion Gap 13 mmol/L (10-20); BUN (Urea Nitrogen) 8 mg/dL (8.4-25.7); Bilirubin, Total 1.5 mg/dL (0.2-1.2); Calc. Creatinine Clearance 0 mL/min (70-130); Calcium 9.4 mg/dL (7.8-10.44); Carbon Dioxide 24 mmol/L (23-31); Chloride 81 mmol/L (98-107); Estimated GFR 102; Globulin 4.1 g/dL (2.4-3.5); Glucose 141 mg/dL (80-115); Magnesium 1.4 mg/dL (1.6-2.6); Potassium 3.6 mmol/L (3.5-5.1); Protein, Total 8.4 g/dL (5.8-8.1)
[2022-04-12 13:29] LABS: Sodium 114 mmol/L (136-145)
[2022-04-12 13:33] LABS: Phosphorus 2.9 mg/dL (2.3-4.7)
[2022-04-12 13:41] LABS: Bilirubin Negative (Negative); Blood, Urine Negative (Negative); Clarity Clear (Clear); Glucose, Urine (Dipstick) 50 mg/dL (Negative); Ketone, Urine Negative (Negative); Leukocyte Negative Leu/uL (Negative); Nitrite Negative (Negative); Protein, Urine (Dipstick) 10 mg/dL (Neg-Trace); Specific Gravity, Urine 1.026 (1.002-1.036); Urobilinogen Normal mg/dL (Less than 2)
[2022-04-12] MEDS ORDERED: Magnesium Sulfate In Water 4 GM in Premix Bag 1 BAG IVPB SCH (15:30)
[2022-04-12] MEDS ORDERED: Sodium Chloride 1 GM TAB PO SCH (15:45)
[2022-04-12] MEDS ORDERED: Ondansetron ODT 4 MG TAB PO PRN (16:01)
[2022-04-12] MEDS ORDERED: HumaLOG 300 UNITS/3 ML VIAL SC PRN ×2 (16:02)
[2022-04-12] MEDS ORDERED: Dextrose 50% Abboject 50 ML SYRINGE SLOW IVP PRN (16:02)
[2022-04-12] MEDS ORDERED: Dextrose 5% in Water 1,000 ML IV PRN (16:02)
[2022-04-12 16:14] VITALS: BMI 28.0
[2022-04-12 19:25] LABS: Anion Gap 14 mmol/L (10-20); BUN (Urea Nitrogen) 8 mg/dL (8.4-25.7); Calc. Creatinine Clearance 124 mL/min (70-130); Calcium 8.7 mg/dL (7.8-10.44); Carbon Dioxide 20 mmol/L (23-31); Chloride 81 mmol/L (98-107); Estimated GFR 102; Glucose 168 mg/dL (80-115); Potassium 3.8 mmol/L (3.5-5.1)
[2022-04-12 19:30] LABS: Sodium 111 mmol/L (136-145)
[2022-04-12] MEDS ORDERED: Sodium Chloride 3% 100 ML IVPB SCH (20:00)
[2022-04-12] MEDS: Sodium Chloride 1 GM TAB PO SCH (20:47)
[2022-04-12] MEDS: Famotidine 20 MG TAB PO SCH (20:47)
[2022-04-12 23:39] LABS: Anion Gap 12 mmol/L (10-20); BUN (Urea Nitrogen) 8 mg/dL (8.4-25.7); Calc. Creatinine Clearance 142 mL/min (70-130); Calcium 8.5 mg/dL (7.8-10.44); Carbon Dioxide 20 mmol/L (23-31); Chloride 84 mmol/L (98-107); Estimated GFR 107; Glucose 165 mg/dL (80-115); Potassium 3.4 mmol/L (3.5-5.1)
[2022-04-12 23:42] LABS: Sodium 113 mmol/L (136-145)
[2022-04-13 04:27] LABS: #Eosinphils 0.1 thou/uL (0.0-0.7); #Lymphocytes 1.4 thou/uL (1.20-3.40); #Monocytes 0.7 thou/uL (0.11-0.59); #Neutrophils 5.4 thou/uL (1.40-6.50); %Basophils 0.3 % (0.0-1.0); %Eosinophils 0.7 % (0.0-10.0); %Lymphocytes 18.6 % (21.0-51.0); %Monocytes 9.5 % (0.0-10.0); %Neutrophils 70.8 % (42.0-75.0); Hemoglobin 15.4 g/dL (14.0-18.0); Mean Corpuscular HGB CONC 32.9 g/dL (32.0-36.0); Mean Corpuscular Hemoglobin 29.9 pg (27.0-31.0); Mean Corpuscular Volume 91.1 fl (78.0-98.0); Mean Platelet Volume 8.3 fL (7.4-10.4); Platelet Count 143 10x3/uL (130-400); RBC Distribution Width 11.5 % (11.5-14.5); Red Blood Cell (RBC) Count 5.15 mill/uL (4.70-6.10); White Blood Cell (WBC) Count 7.7 10x3/uL (4.8-10.8)
[2022-04-13] MEDS: Potassium Chloride 20 MEQ TAB PO SCH ×2 (04:35→09:03)
[2022-04-13 04:52] LABS: ALT (SGPT) 53 U/L (8-55); AST (SGOT) 60 U/L (5-34); Alkaline Phosphatase 124 U/L (40-110); Anion Gap 15 mmol/L (10-20); BUN (Urea Nitrogen) 8 mg/dL (8.4-25.7); Bilirubin, Total 1.6 mg/dL (0.2-1.2); Calc. Creatinine Clearance 147 mL/min (70-130); Calcium 8.9 mg/dL (7.8-10.44); Carbon Dioxide 21 mmol/L (23-31); Chloride 84 mmol/L (98-107); Estimated GFR 108; Globulin 3.5 g/dL (2.4-3.5); Glucose 103 mg/dL (80-115); Magnesium 1.9 mg/dL (1.6-2.6); Potassium 3.5 mmol/L (3.5-5.1); Protein, Total 7.5 g/dL (5.8-8.1)
[2022-04-13] MEDS ORDERED: Acetaminophen 325 MG TAB PO SCH (05:00)
[2022-04-13 05:07] LABS: Sodium 116 mmol/L (136-145)
[2022-04-13 08:46] LABS: Anion Gap 15 mmol/L (10-20); BUN (Urea Nitrogen) 8 mg/dL (8.4-25.7); Calc. Creatinine Clearance 143 mL/min (70-130); Calcium 9.2 mg/dL (7.8-10.44); Carbon Dioxide 20 mmol/L (23-31); Chloride 85 mmol/L (98-107); Estimated GFR 108; Glucose 106 mg/dL (80-115); Potassium 4.2 mmol/L (3.5-5.1)
[2022-04-13 09:00] LABS: Sodium 116 mmol/L (136-145)
[2022-04-13] MEDS ORDERED: FLU VACC QS2022-23(6MOS UP)/PF 60 MCG/0.5 ML SYRINGE IM ONE (09:00)
[2022-04-13] MEDS: Sodium Chloride 1 GM TAB PO SCH ×3 (09:02→21:25)
[2022-04-13] MEDS: Famotidine 20 MG TAB PO SCH ×2 (09:03→21:25)
[2022-04-13] MEDS: Sodium Bicarbonate Tab 325 MG TAB PO SCH ×3 (09:04→21:25)
[2022-04-13 12:28] LABS: Anion Gap 13 mmol/L (10-20); BUN (Urea Nitrogen) 9 mg/dL (8.4-25.7); Calc. Creatinine Clearance 113 mL/min (70-130); Calcium 8.9 mg/dL (7.8-10.44); Carbon Dioxide 22 mmol/L (23-31); Chloride 85 mmol/L (98-107); Estimated GFR 100; Glucose 142 mg/dL (80-115); Potassium 4.3 mmol/L (3.5-5.1)
[2022-04-13 12:31] LABS: Sodium 116 mmol/L (136-145)
[2022-04-13] MEDS ORDERED: Sodium Chloride 1 GM TAB PO SCH (17:05)
[2022-04-13 17:21] LABS: Anion Gap 13 mmol/L (10-20); BUN (Urea Nitrogen) 10 mg/dL (8.4-25.7); Calc. Creatinine Clearance 105 mL/min (70-130); Calcium 9.1 mg/dL (7.8-10.44); Carbon Dioxide 25 mmol/L (23-31); Chloride 84 mmol/L (98-107); Estimated GFR 98; Glucose 112 mg/dL (80-115); Potassium 4.2 mmol/L (3.5-5.1)
[2022-04-13 17:35] LABS: Sodium 118 mmol/L (136-145)
[2022-04-13 20:45] LABS: Anion Gap 13 mmol/L (10-20); BUN (Urea Nitrogen) 11 mg/dL (8.4-25.7); Calc. Creatinine Clearance 109 mL/min (70-130); Carbon Dioxide 24 mmol/L (23-31); Chloride 86 mmol/L (98-107); Estimated GFR 99; Glucose 126 mg/dL (80-115); Potassium 4.5 mmol/L (3.5-5.1)
[2022-04-13 20:55] LABS: Sodium 118 mmol/L (136-145)
[2022-04-14 01:11] LABS: BUN (Urea Nitrogen) 11 mg/dL (8.4-25.7); Calc. Creatinine Clearance 134 mL/min (70-130); Calcium 8.9 mg/dL (7.8-10.44); Carbon Dioxide 15 mmol/L (23-31); Chloride 88 mmol/L (98-107); Estimated GFR 106; Glucose 102 mg/dL (80-115); Potassium 4.7 mmol/L (3.5-5.1)
[2022-04-14 01:14] LABS: Sodium 115 mmol/L (136-145)
[2022-04-14 01:44] LABS: Anion Gap 17 mmol/L (10-20)
[2022-04-14] MEDS ORDERED: Sodium Bicarb 50 MEQ/50 ML Abboject 8.4% SYRINGE IVP SCH (02:45)
[2022-04-14] MEDS ORDERED: Sodium Bicarb 50 MEQ/50 ML VIAL IVP SCH (04:00)
[2022-04-14 04:45] LABS: #Eosinphils 0.1 thou/uL (0.0-0.7); #Lymphocytes 1.9 thou/uL (1.20-3.40); #Monocytes 0.7 thou/uL (0.11-0.59); #Neutrophils 5.7 thou/uL (1.40-6.50); %Basophils 0.2 % (0.0-1.0); %Eosinophils 0.9 % (0.0-10.0); %Lymphocytes 22.2 % (21.0-51.0); %Monocytes 8.7 % (0.0-10.0); Mean Corpuscular HGB CONC 33.4 g/dL (32.0-36.0); Mean Corpuscular Hemoglobin 30.4 pg (27.0-31.0); Mean Corpuscular Volume 91.2 fl (78.0-98.0); Mean Platelet Volume 8.1 fL (7.4-10.4); Platelet Count 146 10x3/uL (130-400); RBC Distribution Width 11.7 % (11.5-14.5); Red Blood Cell (RBC) Count 5.26 mill/uL (4.70-6.10); White Blood Cell (WBC) Count 8.4 10x3/uL (4.8-10.8)
[2022-04-14 04:58] LABS: ALT (SGPT) 53 U/L (8-55); AST (SGOT) 54 U/L (5-34); Alkaline Phosphatase 127 U/L (40-110); Anion Gap 12 mmol/L (10-20); BUN (Urea Nitrogen) 11 mg/dL (8.4-25.7); Bilirubin, Total 1.8 mg/dL (0.2-1.2); Calc. Creatinine Clearance 113 mL/min (70-130); Calcium 9.2 mg/dL (7.8-10.44); Carbon Dioxide 27 mmol/L (23-31); Chloride 84 mmol/L (98-107); Estimated GFR 101; Globulin 3.7 g/dL (2.4-3.5); Glucose 110 mg/dL (80-115); Potassium 4.3 mmol/L (3.5-5.1); Protein, Total 7.7 g/dL (5.8-8.1)
[2022-04-14 05:00] LABS: Sodium 119 mmol/L (136-145)
[2022-04-14] MEDS: Famotidine 20 MG TAB PO SCH ×2 (07:48→20:47)
[2022-04-14] MEDS: Sodium Chloride 1 GM TAB PO SCH ×3 (07:48→20:47)
[2022-04-14] MEDS: Sodium Bicarbonate Tab 325 MG TAB PO SCH ×3 (07:48→20:46)
[2022-04-14 08:12] LABS: Anion Gap 13 mmol/L (10-20); BUN (Urea Nitrogen) 11 mg/dL (8.4-25.7); Calc. Creatinine Clearance 117 mL/min (70-130); Calcium 9.6 mg/dL (7.8-10.44); Carbon Dioxide 25 mmol/L (23-31); Chloride 84 mmol/L (98-107); Estimated GFR 102; Glucose 106 mg/dL (80-115); Potassium 4.3 mmol/L (3.5-5.1)
[2022-04-14 08:20] LABS: Sodium 118 mmol/L (136-145)
[2022-04-14 11:28] LABS: Anion Gap 14 mmol/L (10-20); BUN (Urea Nitrogen) 11 mg/dL (8.4-25.7); Calc. Creatinine Clearance 126 mL/min (70-130); Calcium 9.6 mg/dL (7.8-10.44); Carbon Dioxide 24 mmol/L (23-31); Chloride 88 mmol/L (98-107); Estimated GFR 104; Glucose 152 mg/dL (80-115); Potassium 3.8 mmol/L (3.5-5.1); Sodium 122 mmol/L (136-145)
[2022-04-14 16:44] LABS: Anion Gap 14 mmol/L (10-20); BUN (Urea Nitrogen) 12 mg/dL (8.4-25.7); Calc. Creatinine Clearance 101 mL/min (70-130); Calcium 9.5 mg/dL (7.8-10.44); Carbon Dioxide 25 mmol/L (23-31); Chloride 88 mmol/L (98-107); Estimated GFR 97; Glucose 191 mg/dL (80-115); Potassium 4.5 mmol/L (3.5-5.1); Sodium 122 mmol/L (136-145)
[2022-04-14 21:42] LABS: Anion Gap 14 mmol/L (10-20); BUN (Urea Nitrogen) 13 mg/dL (8.4-25.7); Calc. Creatinine Clearance 116 mL/min (70-130); Calcium 9.5 mg/dL (7.8-10.44); Carbon Dioxide 24 mmol/L (23-31); Chloride 93 mmol/L (98-107); Estimated GFR 102; Glucose 93 mg/dL (80-115); Potassium 4.3 mmol/L (3.5-5.1); Sodium 127 mmol/L (136-145)
[2022-04-15 04:36] LABS: #Lymphocytes 1.7 thou/uL (1.20-3.40); #Neutrophils 6.5 thou/uL (1.40-6.50); %Basophils 0.4 % (0.0-1.0); %Eosinophils 0.4 % (0.0-10.0); %Lymphocytes 18.4 % (21.0-51.0); %Monocytes 10.4 % (0.0-10.0); %Neutrophils 70.4 % (42.0-75.0); Hemoglobin 17.3 g/dL (14.0-18.0); Mean Corpuscular HGB CONC 33.3 g/dL (32.0-36.0); Mean Corpuscular Hemoglobin 30.7 pg (27.0-31.0); Mean Corpuscular Volume 92.2 fl (78.0-98.0); Mean Platelet Volume 7.9 fL (7.4-10.4); Platelet Count 141 10x3/uL (130-400); RBC Distribution Width 11.7 % (11.5-14.5); Red Blood Cell (RBC) Count 5.63 mill/uL (4.70-6.10); White Blood Cell (WBC) Count 9.3 10x3/uL (4.8-10.8)
[2022-04-15 04:55] LABS: Anion Gap 15 mmol/L (10-20); BUN (Urea Nitrogen) 12 mg/dL (8.4-25.7); Calc. Creatinine Clearance 110 mL/min (70-130); Calcium 9.9 mg/dL (7.8-10.44); Carbon Dioxide 25 mmol/L (23-31); Chloride 92 mmol/L (98-107); Estimated GFR 100; Glucose 112 mg/dL (80-115); Sodium 128 mmol/L (136-145)
[2022-04-15 07:54] VITALS: BP 107/70; TEMP 98.2
[2022-04-15] MEDS: Sodium Bicarbonate Tab 325 MG TAB PO SCH (09:06)
[2022-04-15] MEDS: Famotidine 20 MG TAB PO SCH (09:06)
[2022-04-15] MEDS: Sodium Chloride 1 GM TAB PO SCH (09:06)
[2022-04-15 10:02] LABS: Sodium 129 mmol/L (136-145)
== END 2022-04-15 11:39 | disposition home or self-care (01) | DRG 643 ==
LOC: ERS 11:34 → 2NO 14:53 → OBSVTOIN 04-14 11:36
PROVIDERS: ADMIT Family Medicine; ATTEND Hospitalist
DX: E22.2 Syndrome of inappropriate secretion of antidiuretic hormone (principal); U07.1 COVID-19; C34.90 Malignant neoplasm of unspecified part of unspecified bronchus or lung; C78.7 Secondary malignant neoplasm of liver and intrahepatic bile duct; E87.20 Acidosis, unspecified; I10 Essential (primary) hypertension; E78.5 Hyperlipidemia, unspecified; E11.9 Type 2 diabetes mellitus without complications; J44.9 Chronic obstructive pulmonary disease, unspecified; K74.60 Unspecified cirrhosis of liver; E83.42 Hypomagnesemia; E87.6 Hypokalemia; Z88.2 Allergy status to sulfonamides; Z88.1 Allergy status to other antibiotic agents; Z79.51 Long term (current) use of inhaled steroids; Z79.4 Long term (current) use of insulin; Z79.899 Other long term (current) drug therapy; Z90.49 Acquired absence of other specified parts of digestive tract; Z98.890 Other specified postprocedural states
CPT/HCPCS: 36415; 36416; 80048; 80053; 81003; 83735; 84100; 84443; 85025; 93005; J3475; J7131; U0003; U0005

== ENCOUNTER 2022-05-10 07:41 | Outpatient (CLI) | payer BC | END 2022-05-10 07:42 | disposition home or self-care (01) | LOC: SCSMRI 07:41 | PROVIDERS: ATTEND Internal Medicine | DX: C34.80 Malignant neoplasm of overlapping sites of unspecified bronchus and lung (principal); C79.31 Secondary malignant neoplasm of brain | CPT/HCPCS: 70553 ==

== ENCOUNTER 2022-05-28 12:30 | Outpatient (CLI) | payer BC | END 2022-05-28 12:31 | disposition home or self-care (01) | LOC: BICRAD 12:30 | PROVIDERS: ATTEND Radiology Radiation Oncology | DX: R06.2 Wheezing (principal); C34.90 Malignant neoplasm of unspecified part of unspecified bronchus or lung | CPT/HCPCS: 71046 ==

== ENCOUNTER 2022-07-09 09:27 | Outpatient (CLI) | payer BC ==
[2022-07-09] MEDS ORDERED: Iopamidol 370 76% 100 ML VIAL ONE (09:43)
== END 2022-07-09 09:28 | disposition home or self-care (01) ==
LOC: CT 09:27
PROVIDERS: ATTEND Internal Medicine
DX: C34.80 Malignant neoplasm of overlapping sites of unspecified bronchus and lung (principal); I89.8 Other specified noninfective disorders of lymphatic vessels and lymph nodes
CPT/HCPCS: 71260; 74177; Q9967

== ENCOUNTER 2022-11-22 11:37 | Inpatient (IN) | payer BC, MEDICARE ==
[2022-11-22 12:33] LABS: #Monocytes 1.4 thou/uL (0.11-0.59); #Neutrophils 15.7 thou/uL (1.40-6.50); %Basophils 0.2 % (0.0-1.0); %Eosinophils 0.1 % (0.0-10.0); %Lymphocytes 4.3 % (21.0-51.0); %Monocytes 7.7 % (0.0-10.0); %Neutrophils 86.9 % (42.0-75.0); Hematocrit 38.1 % (42.0-52.0); Hemoglobin 13.2 g/dL (14.0-18.0); Mean Corpuscular HGB CONC 34.6 g/dL (32.0-36.0); Mean Corpuscular Hemoglobin 29.3 pg (27.0-31.0); Mean Corpuscular Volume 84.5 fl (78.0-98.0); Mean Platelet Volume 11.3 fL (7.4-10.4); Platelet Count 161 10x3/uL (130-400); Red Blood Cell (RBC) Count 4.51 mill/uL (4.70-6.10); White Blood Cell (WBC) Count 18.1 10x3/uL (4.8-10.8)
[2022-11-22 12:56] LABS: ALT (SGPT) 140 U/L (8-55); AST (SGOT) 142 U/L (5-34); Albumin 3.7 g/dL (3.4-4.8); Alkaline Phosphatase 320 U/L (40-110); Anion Gap 19 mmol/L (10-20); BUN (Urea Nitrogen) 17 mg/dL (8.4-25.7); Bilirubin, Total 8.7 mg/dL (0.2-1.2); Calc. Creatinine Clearance 0 mL/min (70-130); Carbon Dioxide 21 mmol/L (23-31); Chloride 87 mmol/L (98-107); Estimated GFR 98; Globulin 2.6 g/dL (2.4-3.5); Glucose 164 mg/dL (80-115); Potassium 3.5 mmol/L (3.5-5.1); Protein, Total 6.3 g/dL (5.8-8.1); Sodium 123 mmol/L (136-145)
[2022-11-22 13:40] LABS: Troponin I Less than 0.010 ng/mL (< 0.028)
[2022-11-22 17:38] VITALS: BMI 24.7
[2022-11-22] MEDS ORDERED: Ondansetron PF 4 MG/2 ML Vial IVP PRN (18:24)
[2022-11-22] MEDS ORDERED: Acetaminophen 325 MG TAB PO PRN (18:24)
[2022-11-22] MEDS ORDERED: fentaNYL 50 mcg/mL 1 mL Vial SLOW IVP PRN (18:53)
[2022-11-22] MEDS: Sodium Chloride 1 GM TAB PO SCH (21:15)
[2022-11-23 06:33] LABS: INR-International Normal Ratio 1.3; Prothrombin Time 16.7 sec (12.0-14.7)
[2022-11-23 06:36] LABS: #Monocytes 1.1 thou/uL (0.11-0.59); %Basophils 0.1 % (0.0-1.0); %Eosinophils 0.1 % (0.0-10.0); %Lymphocytes 4.1 % (21.0-51.0); %Neutrophils 88.1 % (42.0-75.0); Hematocrit 36.5 % (42.0-52.0); Hemoglobin 13.2 g/dL (14.0-18.0); Mean Corpuscular HGB CONC 36.2 g/dL (32.0-36.0); Mean Corpuscular Hemoglobin 29.7 pg (27.0-31.0); Mean Corpuscular Volume 82.2 fl (78.0-98.0); Mean Platelet Volume 10.7 fL (7.4-10.4); Platelet Count 124 10x3/uL (130-400); Red Blood Cell (RBC) Count 4.44 mill/uL (4.70-6.10); White Blood Cell (WBC) Count 15.9 10x3/uL (4.8-10.8)
[2022-11-23 06:41] LABS: ALT (SGPT) 130 U/L (8-55); AST (SGOT) 137 U/L (5-34); Albumin 3.4 g/dL (3.4-4.8); Alkaline Phosphatase 293 U/L (40-110); Anion Gap 14 mmol/L (10-20); BUN (Urea Nitrogen) 18 mg/dL (8.4-25.7); Bilirubin, Direct 7.8 mg/dL (0.1-0.3); Bilirubin, Total 10.3 mg/dL (0.2-1.2); Calc. Creatinine Clearance 107 mL/min (70-130); Calcium 8.9 mg/dL (7.8-10.44); Carbon Dioxide 26 mmol/L (23-31); Chloride 88 mmol/L (98-107); Estimated GFR 101; Glucose 124 mg/dL (80-115); Potassium 3.7 mmol/L (3.5-5.1); Protein, Total 6.1 g/dL (5.8-8.1); Sodium 124 mmol/L (136-145)
[2022-11-23 07:03] LABS: Burr Cells SLIGHT = 2-5 cells HPF (0-1); CellaVision Operator ID lab.abc; Platelet Adequacy Comment Platelets Decreased; Poikilocytosis SLIGHT = 6-15 cells HPF (0-5); Polychromasia SLIGHT = 2-3 cells HPF (0-2)
[2022-11-23] MEDS: Sodium Chloride 1 GM TAB PO SCH ×2 (08:22→15:41)
[2022-11-23] MEDS ORDERED: Polyethylene Glycol 3350 17 GM Packet PO SCH (09:00)
[2022-11-23] MEDS ORDERED: Folic Acid 1 MG TAB PO SCH (09:00)
[2022-11-23 15:50] VITALS: BP 119/78; TEMP 97.7
== END 2022-11-23 16:42 | disposition hospice, home (50) | DRG 441 ==
LOC: ERS 11:37 → T4-B 16:25
PROVIDERS: ADMIT Family Medicine; ATTEND Family Medicine
DX: K72.90 Hepatic failure, unspecified without coma (principal); K55.059 Acute (reversible) ischemia of intestine, part and extent unspecified; C34.90 Malignant neoplasm of unspecified part of unspecified bronchus or lung; E87.1 Hypo-osmolality and hyponatremia; C79.31 Secondary malignant neoplasm of brain; C78.7 Secondary malignant neoplasm of liver and intrahepatic bile duct; C79.51 Secondary malignant neoplasm of bone; C79.70 Secondary malignant neoplasm of unspecified adrenal gland; R18.8 Other ascites; K76.6 Portal hypertension; K74.60 Unspecified cirrhosis of liver; E80.6 Other disorders of bilirubin metabolism; K59.00 Constipation, unspecified; K21.9 Gastro-esophageal reflux disease without esophagitis; Z90.49 Acquired absence of other specified parts of digestive tract; Z90.89 Acquired absence of other organs; Z87.891 Personal history of nicotine dependence; Z88.2 Allergy status to sulfonamides; Z88.8 Allergy status to other drugs, medicaments and biological substances; Z79.899 Other long term (current) drug therapy; J44.9 Chronic obstructive pulmonary disease, unspecified; E11.9 Type 2 diabetes mellitus without complications; Z98.890 Other specified postprocedural states; Z80.9 Family history of malignant neoplasm, unspecified; D69.6 Thrombocytopenia, unspecified
CPT/HCPCS: 36415; 74177; 80048; 80053; 80076; 82140; 83690; 84484; 85025; 85610; 96372; J1650